=== PATIENT | female | born 1950 | race Caucasian/White ===

== ENCOUNTER → 2017-06-15 | Outpatient (CLI) | payer OTHER ==
[~2017-06-15] MED LIST: NS 100 ML IV 100 ML IV ONE
[2017-06-15 09:53] LABS: CREATININE 1.14 mg/dL (0.55-1.02)
--- NOTE | 2017-06-15 12:42 | CT ---
CT OF THE ABDOMEN AND PELVIS WITHOUT AND WITH CONTRAST HISTORY: Recurrent UTI Comparison: 10/31/2013 Technique: Multiple axial images of the abdomen and pelvis were obtained from the lung bases to the pubic symphy sis before and following the administration of IV contrast. Dose reduction techniques including Aut omated Exposure Control (AEC) and adjustment of mA and kV were utlized. Findings: The heart is normal in size. There is no pericardial effusion. Lung bases are clear without focal con solidation, pleural effusion or pneumothorax. Abdomen without: No gallstones, renal stones or proximal ureteral stones. Abdomen with: Liver and spleen are normal in size, enhancement characteristics and contour. Multiple hypo attenuating liver lesions are unchanged from prior. The portal vein is patent. No ductal dilitat ion. Gallbladder is present. No gallbladder wall thickening. Fatty atrophy of the pancreas. Adrenal g lands are normal. Kidneys enhance symmetrically without hydronephrosis. No bowel obstruction or inflammation. No abnormal appearing mesenteric or retroperitoneal lymph node s. No free fluid or fluid collections. Pelvis without: No distal ureteral stones or bladder stones. Pelvis with: The bladder is normal in appearance. Uterus is absent. No free fluid or abnormal pelvic lymph nodes. No aggressive osseous lesions. IMPRESSION: 1. No source of patient's recurrent UTIs be identified on this examination. 2. Multiple, stable hepatic cysts. Reported By:
== END ==
LOC: RAD 09:17
PROVIDERS: ATTEND Obstetrics & Gynecology Obstetrics
DX: R31.9 Hematuria, unspecified (principal)
CPT/HCPCS: 36415; 74178; 82565; 84520; A4222

== ENCOUNTER 2024-05-09 20:49 | Inpatient (IN) ==
[2024-05-09 22:06] LABS: BASOPHILS # (AUTO) 0.1 X10^3/uL (0.0-0.1); NEUTROPHILS # (AUTO) 8.2 x10^3/uL (2.2-4.8); RED CELL DISTRIBUTION WIDTH 18.4 % (11.6-16.5)
[2024-05-09 22:15] LABS: ALBUMIN 2.3 g/dL (3.4-5.0); CALCIUM 8.5 mg/dL (8.5-10.1); CARBON DIOXIDE 21.6 mmol/L (21-32); COR CA(FOR HYPOALB) 9.9 mg/dL (8.5-10.1); CREATININE 1.31 mg/dL (0.55-1.02); POTASSIUM 4.3 mmol/L (3.5-5.1); TOTAL PROTEIN 4.6 g/dL (6.4-8.2)
[2024-05-09 22:18] LABS: BASOPHILS % (AUTO) 0.7 % (0.2-1.0); EOSINOPHILS % (AUTO) 0.2 % (0.9-2.9); LYMPHOCYTES % (AUTO) 18.8 % (21.0-51.0); MEAN CORPUSCULAR HEMOGLOBIN 31.4 pg (27.0-34.0); MEAN CORPUSCULAR HGB CONC 33.6 g/dL (33.0-35.0); MEAN CORPUSCULAR VOLUME 93.6 fL (80.0-100.0); MEAN PLATELET VOLUME 8.9 fL (7.4-11.0); MONOCYTES # (AUTO) 0.5 x10^3/uL (0.3-0.8); MONOCYTES % (AUTO) 4.6 % (0.0-13.0); NEUTROPHILS % (AUTO) 75.7 % (42.0-75.0); PLATELET COUNT 456 X10^3/uL (150.0-450.0); RED BLOOD COUNT 1.77 X10^6/uL (3.5-5.4); WHITE BLOOD COUNT 10.8 X10^3/uL (3.6-10.0)
[2024-05-09] MEDS: ZOFRAN INJ 4 MG VIAL IM ONE (22:27)
[2024-05-09 22:37] LABS: HEMOGLOBIN 5.5 g/dL (12.0-16.0)
[2024-05-09 22:38] LABS: HEMATOCRIT 16.5 % (36.0-47.0)
--- NOTE | 2024-05-09 22:55 | ED.ABDFE ---
HPI Time Seen Time Seen by Provider: 05/09/24 22:36 PCP Primary Care Physician: rangel HPI Comment HPI Comment: History as below. Complaint Doctors Chief Complaint Comments: Patient is 73yr old female in ER with abdominal pain, nausea, vomiting and GI bleeding. Patient said symptoms on and off and got worse past few days. Patient is weak and dizzy. She denies diarrhea or dysuria. Chief Complaint:: pt c/o nausea for months and months bleeding from rectum for months. pt states" I'm just so sick I can't do anything I'm just so sick" COVID-19 Coronavirus risk:travel/contact w/high risk person: No Has patient experienced Coronavirus symptoms: No Source History Provided: Patient Mode of arrival Mode of Arrival: Wheelchair Timing Onset of Chief Complaint: 02/08/24 PMH PMH Past Medical History: Yes Past Medical History: Anemia, Diabetes and Hypertension Past Surgical History: Yes Surgical History: Hysterectomy, Ortho Surgery and Tonsillectomy Family History History of Family Medical Conditions: No Family Medical History: Diabetes Mellitus, Cancer and Hypertension Social History Does patient currently use any type of tobacco product: No Have you used tobacco products in the last 12 months: No Type of Tobacco Use: None Does any household member use tobacco: No Alcohol Use: None Do you use any recreational Drugs:: No Lives With: Family Lives Where: Home Travel Risk Coronavirus risk:travel/contact w/high risk person: No Has patient experienced Coronavirus symptoms: No Infectious screening In the last 2 months have you had wt loss of >10#?: NO Have you had fever, night sweats or hemotysis?: No Have you traveled outside the country in the last 6 months?: No Isolation: Standard ROS Review of Systems Constitutional: Weakness and Fatigue; negative Fever Eyes: No Symptoms Reported ENTM: No Symptoms Reported; negative Nose Discharge, Nose Congestion or Throat Pain Respiratoy: Short of Breath; negative Moist Cough or Wheezing Cardiovascular: No Symptoms Reported; negative Chest Pain or Edema Gastrointestinal/Abdominal: Abdominal Pain, Nausea and Vomiting Genitourinary: No Symptoms Reported; negative Dysuria Neurological: negative Headache or Dizziness Musculoskeletal: No Symptoms Reported; negative Muscle Pain Integumentary: Dryness; negative Rash Hematologic/Lymphatic: No Symptoms Reported Endocrine: Increased Thirst; negative Increased Urine Psychiatric: Anxiety All Other Systems: Reviewed and Negative PE Vital Signs Vitals: Vital Signs Pulse Rate 115 Pulse Rate 115 Pulse Rate 116 Pulse Rate 116 Respiratory Rate 20 Respiratory Rate 18 Respiratory Rate 23 Blood Pressure 176/80 Blood Pressure 153/67 Blood Pressure 158/69 O2 Sat by Pulse Oximetry 99 O2 Sat by Pulse Oximetry 98 O2 Sat by Pulse Oximetry 98 O2 Sat by Pulse Oximetry 99 General Limitations: No Limitations General Appearance: Alert and In No Apparent Distress Head Head Exam: Normal Inspection Eyes Eye exam: Normal Appearance; negative Scleral Icterus or Conjunctival Injection ENT ENT Exam: Normal Exam, Normal Oropharynx, Normal External Ear Exam and TM's Normal Bilaterally Neck Neck Exam: Normal Inspection and Tenderness Chest Chest Inspection: Normal Inspection and Symmetric Chest Wall Rise; negative Tenderness Respiratory Respiratory Exam: Normal Lung Sounds Bilat; negative Accessory Muscle Use, Chest Wall Tenderness or Respiratory Distress Respiratory Exam: Bilateral: Rhonchi Cardiovascular Cardiovascular Exam: Tachycardia; negative Systolic Murmur or Diastolic Murmur Abdominal Exam Abdominal Exam: Normal Bowel Sounds, Soft and Tenderness Abdominal Tenderness: Diffuse and Moderate Rectal Rectal Exam: Heme (+) Stool, Hemorrhoids and Other (red blood in diaper. external hemorrhoid noted. No bleeding noted.) Back Back Exam: Normal Inspection; negative (R) CVA Tenderness or (L) CVA Tenderness Extremeties Extremities Exam: Normal Capillary Refill and Edema (trace edema.) External Exam: Female: Deferred : Speculum Exam (Female): Deferred : Bimanual Exam (female): Deferred Neurologic Neurological Exam: Alert and Oriented X3; negative Motor Sensory Deficit Psychiatric Psychiatric Exam: Normal Affect and Anxious Skin Skin Exam: Warm; negative Rash MDM Differential Diagnosis Differential Diagnosis- Considerations may include:: Bowel Obstruction, Cholcystitis, Cholelethiasis, Constipation, Diverticular disease, Gastritus/PUD, Inflammatory BD, Pancreatitis, Urinary tract infection, Urolithiasis and Other (comments) (GI BLEEDING.) COURSE Treatment Treatment: See orders done while patient was in ER. Labs and CT discussed. Patients have red blood in diaper. one of the vomitus had dark stool. Patient started on Protonix drip. Hemoglobin is 5.5 blood requested, 2units is pending. Blood sent [employer] for typing. Consultation Consultation Comments: Discussed patient with Dr. Dumont. He will admit gato ent. Education/Counseling Education/Counseling: Patient and Family Educated On: Diagnosis ROR Labs Reviewed Laboratory Results Reviewed?: Yes 05/10/24 05:55 05/10/24 05:55 Laboratory: WBC 10.8 X10^3/uL (3.6-10.0) H 05/09/24 21:55 RBC 1.77 X10^6/uL (3.5-5.4) L 05/09/24 21:55 Hgb 5.5 g/dL (12.0-16.0) L* 05/09/24 21:55 Hct 16.5 % (36.0-47.0) L* 05/09/24 21:55 MCV 93.6 fL (80.0-100.0) 05/09/24 21:55 MCH 31.4 pg (27.0-34.0) 05/09/24 21:55 MCHC 33.6 g/dL (33.0-35.0) 05/09/24 21:55 RDW 18.4 % (11.6-16.5) H 05/09/24 21:55 Plt Count 456 X10^3/uL (150.0-450.0) H 05/09/24 21:55 MPV 8.9 fL (7.4-11.0) 05/09/24 21:55 Neut % (Auto) 75.7 % (42.0-75.0) H 05/09/24 21:55 Lymph % (Auto) 18.8 % (21.0-51.0) L 05/09/24 21:55 [place] % (Auto) 4.6 % (0.0-13.0) 05/09/24 21:55 Eos % (Auto) 0.2 % (0.9-2.9) L 05/09/24 21:55 Baso % (Auto) 0.7 % (0.2-1.0) 05/09/24 21:55 Neut # (Auto) 8.2 x10^3/uL (2.2-4.8) H 05/09/24 21:55 Lymph # (Auto) 2.0 X10^3/uL (1.3-2.9) 05/09/24 21:55 [place] # (Auto) 0.5 x10^3/uL (0.3-0.8) 05/09/24 21:55 Eos # (Auto) 0.0 x10^3/uL (0.0-0.2) 05/09/24 21:55 Baso # (Auto) 0.1 X10^3/uL (0.0-0.1) 05/09/24 21:55 Absolute Nucleated RBC 0.1 /100WBC 05/09/24 21:55 Sodium 140 mmol/L (136-145) 05/09/24 21:55 Corrected Sodium 142 mmol/L (136-145) 05/09/24 21:55 Potassium 4.3 mmol/L (3.5-5.1) 05/09/24 21:55 Chloride 104 mmol/L (98-107) 05/09/24 21:55 Carbon Dioxide 21.6 mmol/L (21-32) 05/09/24 21:55 BUN 30 mg/dL (7-18) H 05/09/24 21:55 Creatinine 1.31 mg/dL (0.55-1.02) H 05/09/24 21:55 Est GFR (MDRD) Af Amer 51 (>60) L 05/09/24 21:55 Est GFR (MDRD) Non-Af 42 (>60) L 05/09/24 21:55 Glucose 169 mg/dL (65-99) H 05/09/24 21:55 Calcium 8.5 mg/dL (8.5-10.1) 05/09/24 21:55 Corrected Calcium 9.9 mg/dL (8.5-10.1) 05/09/24 21:55 Total Bilirubin 0.20 mg/dL (0.2-1.0) 05/09/24 21:55 AST 8 Units/L (15-37) L 05/09/24 21:55 ALT 9 Units/L (12-78) L 05/09/24 21:55 Alkaline Phosphatase 81 Units/L (46-116) 05/09/24 21:55 B-Natriuretic Peptide 40.3 pg/mL (0-79) 05/09/24 23:52 Total Protein 4.6 g/dL (6.4-8.2) L 05/09/24 21:55 Albumin 2.3 g/dL (3.4-5.0) L 05/09/24 21:55 Globulin 2.3 g/dL (2.5-4.5) L 05/09/24 21:55 Albumin/Globulin Ratio 1.0 Ratio (1.1-2.1) L 05/09/24 21:55 Amylase 21 Units/L (25-115) L 05/09/24 21:55 Lipase 22 Units/L (16-77) 05/09/24 21:55 Stl Occult Blood (IFOB) Positive (NEGATIVE) A 05/09/24 23:57 Crossmatch See Detail 05/09/24 23:42 XRAY XRAY Interpreted by: Radiologist (Report noted.) EKG Rate: 114 [place]: Normal Rhythm: ST Block: AVB and RBBB Hypertrophy: None ST: Nonsp Opioid Opioid Risk Tool Age ([place] box if 16-45): No History of Preadolescent Sexual Abuse: No Total: 0 Total Score Risk Category: Low Risk Copyright: Blu GRIGGS predicting aberrant behaviors Discharge Plan Diagnosis Discharge Problem: Acute GI bleeding, Cholecystitis, Generalized weakness Anemia Qualifiers: Anemia type: unspecified type Qualified Code(s): D64.9 - Anemia, unspecified Cholelithiasis Qualifiers: Cholelithiasis location: gallbladder Cholecystitis presence: with cholecystitis Cholecystitis acuity: acute and chronic Biliary obstruction: without biliary obstruction Qualified Code(s): K80.12 - Calculus of gallbladder with acute and chronic cholecystitis without obstruction Discharge Plan Patient Disposition: 09 ADMITTED INPATIENT Condition: Stable
[2024-05-09] MEDS: NS 1,000 ML IV 1,000 ML IV SCH (23:01)
[2024-05-09] MEDS: ZOFRAN INJ 4 MG VIAL IVP ONE (23:06)
[2024-05-09] MEDS: PROTONIX INJ 40 MG VIAL 80 MG in NS 100 ML IV 80 ML IV SCH (23:47)
--- NOTE | 2024-05-10 00:47 | CT ---
PROCEDURE: CT Abdomen and Pelvis without IV Contrast. HISTORY: pt c/o nausea for months and months bleeding from rectum for months. pt states" I'm just so sick I can't do anything I'm just so sick"; HTN, DM, ANEMIA SX: HYST, ORTHO, TONSILS . TECHNIQUE: Axial images were performed through the abdomen and pelvis without the administration of I V contrast with multiplanar reformations . Oral contrast was notadministered . Dose reduction techniq ues including Automated Exposure Control (AEC) and adjustment of mA and kV were utilized .. COMPARISON: 02/26/2024. TECHNICAL QUALITY: Satisfactory. FINDINGS: Clear lung bases. Several small hepatic cysts. Bilateral small adrenal nodules are unchanged probably related to adeno mas. Spleen and pancreas show no abnormality. Kidneys show no stones or obstruction. Increased attenuation gallbladder lumen could represent large stones or sludge with thickened wall an d pericholecystic stranding. Some air in the gallbladder versus cholesterol stones with central vacu um phenomena. Normal biliary tree. No ascites or pneumoperitoneum. Mild atherosclerosis aorta. No lymphadenopathy. No bowel obstruction or inflammation and normal appendix. Pelvis shows no masses or free fluid with previous hysterectomy. Normal urinary bladder. No acute bony abnormality. IMPRESSION: 1. Cholelithiasis or sludge with acute cholecystitis. 2. Unchanged adrenal nodules. THIS IS AN ELECTRONICALLY VERIFIED FINAL REPORT 05/10/2024 12:44 AM - Electronically signed by Marcel Wyatt MD
[2024-05-10] MEDS: PHENERGAN INJ 25 MG IM ONE ×2 (03:29→06:36)
[2024-05-10 03:30] VITALS: BMI 42.0
[2024-05-10] MEDS ORDERED: ZOFRAN INJ 4 MG VIAL IVP PRN (04:00)
--- NOTE | 2024-05-10 04:11 | EKG ---
Test Reason : ANEMIA Blood Pressure : */* mmHG Vent. Rate : 114 BPM Atrial Rate : 114 BPM P-R Int : 126 ms QRS Dur : 126 ms QT Int : 370 ms P-R-T Axes : 64 -58 41 degrees QTc Int : 509 ms Sinus tachycardia Right bundle branch block Left anterior fascicular block Bifascicular block Abnormal ECG No previous ECGs available Confirmed by Danny Henson MD ([id number]) on 05/10/2024 7:18:29 AM Referred By: Confirmed By: Danny Henson MD
[2024-05-10 04:47] LABS: BILIRUBIN,URINE NEGATIVE (NEGATIVE); BLOOD/HEMOGLOBIN,URINE NEGATIVE (NEGATIVE); GLUCOSE, URINE NEGATIVE (NEGATIVE); KETONES,URINE 1+ (NEGATIVE); LEUKOCYTE ESTERASE ,URINE NEGATIVE (NEGATIVE); NITRITES,URINE NEGATIVE (NEGATIVE); PROTEIN,URINE 2+ (NEGATIVE); UROBILINOGEN,URINE NORMAL (NORMAL)
[2024-05-10 04:50] LABS: APPEARANCE,URINE CLEAR (CLEAR); BACTERIA,URINE NEGATIVE /HPF (NEGATIVE); COLOR,URINE PALE YELLOW (YELLOW); HYALINE CASTS, URINE FEW /LPF (NEGATIVE); RBC,URINE 0-2 /HPF (0-3); SQUAMOUS EPITHELIAL CELL,UR FEW /HPF (NEGATIVE)
[2024-05-10 06:12] LABS: MEAN CORPUSCULAR VOLUME 93.8 fL (80.0-100.0); MONOCYTES # (AUTO) 0.3 x10^3/uL (0.3-0.8)
[2024-05-10 06:18] LABS: BASOPHILS % (AUTO) 0.2 % (0.2-1.0); LYMPHOCYTES % (AUTO) 27.9 % (21.0-51.0); MEAN CORPUSCULAR HEMOGLOBIN 31.3 pg (27.0-34.0); MEAN CORPUSCULAR HGB CONC 33.4 g/dL (33.0-35.0); MEAN PLATELET VOLUME 8.3 fL (7.4-11.0); MONOCYTES % (AUTO) 3.3 % (0.0-13.0); NEUTROPHILS # (AUTO) 7.3 x10^3/uL (2.2-4.8); NEUTROPHILS % (AUTO) 68.6 % (42.0-75.0); PLATELET COUNT 427 X10^3/uL (150.0-450.0); RED CELL DISTRIBUTION WIDTH 18.5 % (11.6-16.5); WHITE BLOOD COUNT 10.6 X10^3/uL (3.6-10.0)
[2024-05-10 06:24] LABS: ALBUMIN 2.4 g/dL (3.4-5.0); CALCIUM 8.2 mg/dL (8.5-10.1); CARBON DIOXIDE 23.6 mmol/L (21-32); COR CA(FOR HYPOALB) 9.5 mg/dL (8.5-10.1); CREATININE 1.2 mg/dL (0.55-1.02); MAGNESIUM 1.7 mg/dL (2.0-2.9); POTASSIUM 4.1 mmol/L (3.5-5.1); TOTAL PROTEIN 4.6 g/dL (6.4-8.2)
[2024-05-10] MEDS: ZOFRAN INJ 4 MG VIAL ONE (06:35)
[2024-05-10] MEDS: PROTONIX INJ 40 MG VIAL 80 MG in NS 100 ML IV 80 ML IV SCH (06:36)
[2024-05-10 06:39] LABS: INR 1.56 (0.8-1.3)
[2024-05-10] MEDS: CYTOTEC PO SCH (10:40)
[2024-05-10] MEDS: NS 500 ML IV 500 ML IV ONE (11:29)
[2024-05-10] MEDS: VISTARIL PO PRN (11:40)
[2024-05-10] MEDS ORDERED: CONSULT PHARMACY - POTASSIUM & MAGNESIUM XX SCH (12:00)
[2024-05-10] MEDS: NS 1,000 ML IV 1,000 ML with MAGNESIUM SULFATE 50% INJ VIAL 1 G IV SCH (14:35)
[2024-05-10 19:16] LABS: HEMATOCRIT 22.5 % (36.0-47.0); HEMOGLOBIN 7.4 g/dL (12.0-16.0)
[2024-05-10] MEDS: RESTORIL CAP 15 MG PO PRN (20:11)
[2024-05-10 23:15] LABS: HEMATOCRIT 19.6 % (36.0-47.0); HEMOGLOBIN 6.7 g/dL (12.0-16.0)
[2024-05-11] MEDS ORDERED: NS 500 ML IV 500 ML IV ONE ×3 (00:40→16:41)
[2024-05-11 06:30] LABS: BASOPHILS # (AUTO) 0.3 X10^3/uL (0.0-0.1); BASOPHILS % (AUTO) 3.5 % (0.2-1.0); EOSINOPHILS % (AUTO) 0.6 % (0.9-2.9); HEMATOCRIT 21.3 % (36.0-47.0); HEMOGLOBIN 7.2 g/dL (12.0-16.0); LYMPHOCYTES % (AUTO) 38.7 % (21.0-51.0); MEAN CORPUSCULAR HEMOGLOBIN 30.2 pg (27.0-34.0); MEAN CORPUSCULAR VOLUME 88.8 fL (80.0-100.0); MEAN PLATELET VOLUME 8.5 fL (7.4-11.0); MONOCYTES # (AUTO) 0.5 x10^3/uL (0.3-0.8); MONOCYTES % (AUTO) 6.9 % (0.0-13.0); NEUTROPHILS # (AUTO) 3.9 x10^3/uL (2.2-4.8); NEUTROPHILS % (AUTO) 50.3 % (42.0-75.0); PLATELET COUNT 248 X10^3/uL (150.0-450.0); RED CELL DISTRIBUTION WIDTH 18.4 % (11.6-16.5); WHITE BLOOD COUNT 7.8 X10^3/uL (3.6-10.0)
[2024-05-11 06:52] LABS: ALANINE AMINOTRANSFERASE 11 Units/L (12-78); ALBUMIN 2.3 g/dL (3.4-5.0); ALKALINE PHOSPHATASE 64 Units/L (46-116); ASPARTATE AMINO TRANSFERASE 11 Units/L (15-37); BLOOD UREA NITROGEN 19 mg/dL (7-18); CALCIUM 7.7 mg/dL (8.5-10.1); CARBON DIOXIDE 23.4 mmol/L (21-32); CHLORIDE 106 mmol/L (98-107); COR CA(FOR HYPOALB) 9.1 mg/dL (8.5-10.1); CREATININE 0.95 mg/dL (0.55-1.02); GLUCOSE 109 mg/dL (65-99); POTASSIUM 3.2 mmol/L (3.5-5.1); SODIUM 140 mmol/L (136-145); TOTAL PROTEIN 4.5 g/dL (6.4-8.2); eGFR NON BLACK RACES > 60 (>60)
[2024-05-11] MEDS ORDERED: CONSULT PHARMACY - POTASSIUM & MAGNESIUM XX SCH (08:00)
--- NOTE | 2024-05-11 08:26 | DR.PROGNOT ---
HOSPITAL PROGRESS NOTE Progress Note for Day of: Progress Note Date: 05/11/24 Chief Complaint Chief Complaint: having bloody stool and less abdominal pain . Hgb 7.8 , WBC 7.8 .. platelet 248 .BUN19. afebrile . soft , flat abdomen with mild diffuse tenderness . Past Medical Family Social History Past Med/Fam/Surg Hx: No changes since H&P Allergies: Allergies No Known Allergies Allergy (Verified 05/09/24 23:58) Vital Signs Vital Signs: Vital Signs Temperature 98.2 F Temperature 99.0 F Pulse Rate 98 Pulse Rate 97 Pulse Rate 91 Pulse Rate 90 Pulse Rate 91 Pulse Rate 91 Pulse Rate 88 Pulse Rate 91 Pulse Rate 93 Pulse Rate 92 Pulse Rate 90 Pulse Rate 90 Pulse Rate 92 Pulse Rate 92 Pulse Rate 91 Pulse Rate 94 Pulse Rate 94 Pulse Rate 91 Pulse Rate 92 Pulse Rate 92 Pulse Rate 90 Pulse Rate 89 Pulse Rate 97 Pulse Rate 97 Pulse Rate 91 Pulse Rate 93 Pulse Rate 92 Pulse Rate 97 Pulse Rate 94 Pulse Rate 93 Pulse Rate 94 Pulse Rate 93 Pulse Rate 95 Pulse Rate 93 Pulse Rate 93 Pulse Rate 100 Pulse Rate 95 Respiratory Rate 18 Respiratory Rate 29 Respiratory Rate 22 Respiratory Rate 19 Respiratory Rate 18 Respiratory Rate 19 Respiratory Rate 18 Respiratory Rate 17 Respiratory Rate 20 Respiratory Rate 19 Respiratory Rate 20 Respiratory Rate 20 Respiratory Rate 25 Respiratory Rate 19 Respiratory Rate 20 Respiratory Rate 20 Respiratory Rate 19 Respiratory Rate 15 Respiratory Rate 18 Respiratory Rate 19 Respiratory Rate 26 Respiratory Rate 17 Respiratory Rate 20 Respiratory Rate 25 Respiratory Rate 21 Respiratory Rate 20 Respiratory Rate 21 Respiratory Rate 21 Respiratory Rate 19 Respiratory Rate 22 Respiratory Rate 23 Respiratory Rate 22 Respiratory Rate 21 Respiratory Rate 21 Respiratory Rate 19 Respiratory Rate 20 Respiratory Rate 20 Respiratory Rate 5 Blood Pressure 157/72 Blood Pressure 157/69 Blood Pressure 154/66 Blood Pressure 216/87 Blood Pressure 187/76 Blood Pressure 163/69 Blood Pressure 151/65 Blood Pressure 148/65 Blood Pressure 133/62 Blood Pressure 121/58 Blood Pressure 118/54 O2 Sat by Pulse Oximetry 98 O2 Sat by Pulse Oximetry 100 O2 Sat by Pulse Oximetry 100 O2 Sat by Pulse Oximetry 100 O2 Sat by Pulse Oximetry 100 O2 Sat by Pulse Oximetry 100 O2 Sat by Pulse Oximetry 100 O2 Sat by Pulse Oximetry 100 O2 Sat by Pulse Oximetry 100 O2 Sat by Pulse Oximetry 100 O2 Sat by Pulse Oximetry 100 O2 Sat by Pulse Oximetry 100 O2 Sat by Pulse Oximetry 100 O2 Sat by Pulse Oximetry 100 O2 Sat by Pulse Oximetry 100 O2 Sat by Pulse Oximetry 100 O2 Sat by Pulse Oximetry 100 O2 Sat by Pulse Oximetry 100 O2 Sat by Pulse Oximetry 100 O2 Sat by Pulse Oximetry 100 O2 Sat by Pulse Oximetry 100 O2 Sat by Pulse Oximetry 100 O2 Sat by Pulse Oximetry 98 O2 Sat by Pulse Oximetry 97 O2 Sat by Pulse Oximetry 96 O2 Sat by Pulse Oximetry 97 O2 Sat by Pulse Oximetry 99 O2 Sat by Pulse Oximetry 94 O2 Sat by Pulse Oximetry 97 O2 Sat by Pulse Oximetry 95 O2 Sat by Pulse Oximetry 97 O2 Sat by Pulse Oximetry 96 O2 Sat by Pulse Oximetry 96 O2 Sat by Pulse Oximetry 96 O2 Sat by Pulse Oximetry 98 O2 Sat by Pulse Oximetry 97 Physical Exam Oriented: Normal Eyes: Normal Ear: Normal Nose: Normal Throat: Normal Respiratory: Normal Cardiovascular: Normal GI:Auscultation: Decreased GI: Tenderness: Diffuse and Periumbilical Speech Pattern: Clear and Appropriate Laboratory and Diagnostics 05/11/24 06:15 05/11/24 06:15 Labs: Laboratory WBC 7.8 X10^3/uL (3.6-10.0) 05/11/24 06:15 RBC 2.40 X10^6/uL (3.5-5.4) L 05/11/24 06:15 Hgb 7.2 g/dL (12.0-16.0) L 05/11/24 06:15 Hct 21.3 % (36.0-47.0) L 05/11/24 06:15 MCV 88.8 fL (80.0-100.0) 05/11/24 06:15 MCH 30.2 pg (27.0-34.0) 05/11/24 06:15 MCHC 34.0 g/dL (33.0-35.0) 05/11/24 06:15 RDW 18.4 % (11.6-16.5) H 05/11/24 06:15 Plt Count 248 X10^3/uL (150.0-450.0) 05/11/24 06:15 MPV 8.5 fL (7.4-11.0) 05/11/24 06:15 Neut % (Auto) 50.3 % (42.0-75.0) 05/11/24 06:15 Lymph % (Auto) 38.7 % (21.0-51.0) 05/11/24 06:15 [place] % (Auto) 6.9 % (0.0-13.0) 05/11/24 06:15 Eos % (Auto) 0.6 % (0.9-2.9) L 05/11/24 06:15 Baso % (Auto) 3.5 % (0.2-1.0) H 05/11/24 06:15 Neut # (Auto) 3.9 x10^3/uL (2.2-4.8) 05/11/24 06:15 Lymph # (Auto) 3.0 X10^3/uL (1.3-2.9) H 05/11/24 06:15 [place] # (Auto) 0.5 x10^3/uL (0.3-0.8) 05/11/24 06:15 Eos # (Auto) 0.0 x10^3/uL (0.0-0.2) 05/11/24 06:15 Baso # (Auto) 0.3 X10^3/uL (0.0-0.1) H 05/11/24 06:15 Absolute Nucleated RBC 0.1 /100WBC 05/11/24 06:15 PT 18.2 SECONDS (11.8-14.3) 05/10/24 05:55 INR Target Range - 05/10/24 05:55 INR 1.56 (0.8-1.3) H 05/10/24 05:55 APTT 29.6 SECONDS (22.9-36.5) 05/10/24 05:55 PTT Comment - 05/10/24 05:55 Sodium 140 mmol/L (136-145) 05/11/24 06:15 Corrected Sodium TNP 05/11/24 06:15 Potassium 3.2 mmol/L (3.5-5.1) L 05/11/24 06:15 Chloride 106 mmol/L (98-107) 05/11/24 06:15 Carbon Dioxide 23.4 mmol/L (21-32) 05/11/24 06:15 BUN 19 mg/dL (7-18) H 05/11/24 06:15 Creatinine 0.95 mg/dL (0.55-1.02) 05/11/24 06:15 Est GFR (MDRD) Af Amer > 60 (>60) 05/11/24 06:15 Est GFR (MDRD) Non-Af > 60 (>60) 05/11/24 06:15 Glucose 109 mg/dL (65-99) H 05/11/24 06:15 Calcium 7.7 mg/dL (8.5-10.1) L 05/11/24 06:15 Corrected Calcium 9.1 mg/dL (8.5-10.1) 05/11/24 06:15 Magnesium 2.0 mg/dL (2.0-2.9) 05/11/24 06:15 Total Bilirubin 0.40 mg/dL (0.2-1.0) 05/11/24 06:15 AST 11 Units/L (15-37) L 05/11/24 06:15 ALT 11 Units/L (12-78) L 05/11/24 06:15 Alkaline Phosphatase 64 Units/L (46-116) 05/11/24 06:15 B-Natriuretic Peptide 40.3 pg/mL (0-79) 05/09/24 23:52 Total Protein 4.5 g/dL (6.4-8.2) L 05/11/24 06:15 Albumin 2.3 g/dL (3.4-5.0) L 05/11/24 06:15 Globulin 2.2 g/dL (2.5-4.5) L 05/11/24 06:15 Albumin/Globulin Ratio 1.0 Ratio (1.1-2.1) L 05/11/24 06:15 Amylase 21 Units/L (25-115) L 05/09/24 21:55 Lipase 22 Units/L (16-77) 05/09/24 21:55 Specimen Type Catherized urine 05/10/24 04:39 Urine Color Pale yellow (YELLOW) 05/10/24 04:39 Urine Appearance Clear (CLEAR) 05/10/24 04:39 Urine pH 5.0 (5.0 - 8.0) 05/10/24 04:39 Ur Specific [place] 1.015 (1.000-1.030) 05/10/24 04:39 Urine Protein 2+ (NEGATIVE) 05/10/24 04:39 Urine Glucose (UA) Negative (NEGATIVE) 05/10/24 04:39 Urine Ketones 1+ (NEGATIVE) 05/10/24 04:39 Urine Blood Negative (NEGATIVE) 05/10/24 04:39 Urine Nitrite Negative (NEGATIVE) 05/10/24 04:39 Urine Bilirubin Negative (NEGATIVE) 05/10/24 04:39 Urine Urobilinogen Normal (NORMAL) 05/10/24 04:39 Ur Leukocyte Esterase Negative (NEGATIVE) 05/10/24 04:39 Urine RBC 0-2 /HPF (0-3) 05/10/24 04:39 Urine WBC 0-2 /HPF (0-5) 05/10/24 04:39 Ur Squamous Epith Cells Few /HPF (NEGATIVE) 05/10/24 04:39 Urine Bacteria Negative /HPF (NEGATIVE) 05/10/24 04:39 Hyaline Casts Few /LPF (NEGATIVE) 05/10/24 04:39 Ur Culture Indicated? No/not indicated 05/10/24 04:39 Stl Occult Blood (IFOB) Positive (NEGATIVE) A 05/09/24 23:57 Blood Type B POSITIVE 05/09/24 23:42 Antibody Screen Negative 05/09/24 23:42 Crossmatch See Detail 05/09/24 23:42 Assessment and Plan 1: severe anemia , recurrent GI bleeding . for colonoscopy next week . Problem Patient Problems: Patient Problems (Updated 05/10/24 @ 07:50 by JOHNNIE HARRELL) Acute GI bleeding (Acute) K92.2 Anemia (Acute) D64.9 Generalized weakness (Acute) R53.1 Cholecystitis (Acute) K81.9 Cholelithiasis (Acute) K80.20
[2024-05-11] MEDS: POTASSIUM CHLORIDE INJ 40 MEQ VIAL 40 MEQ in NS 1/2 500 ML IV 500 ML IV ONE (09:27)
[2024-05-11] MEDS: COREG TAB 12.5 MG PO SCH (09:28)
[2024-05-11] MEDS: NORVASC TAB 5 MG PO SCH (09:29)
[2024-05-11] MEDS: ACTOS PO SCH (09:29)
[2024-05-11] MEDS: ZYLOPRIM PO SCH (09:29)
[2024-05-11] MEDS: EFFEXOR XR 150 MG CAP 24-HR PO SCH (10:38)
[2024-05-11 12:23] LABS: RETICULOCYTE % 3.51 % (0.8-2.2)
--- NOTE | 2024-05-11 12:39 | RAD ---
EXAM:CHEST, 1 VIEWHISTORY:CENTRAL LINE PLACEMENT ; HTN, DM, ANEMIA SX: HYST, ORTHO, TONSILSCOMPARISON:No relevant prior studies were available for comparison at the time of interpretation.TECHNIQUE:CHEST, 1 VIEWFINDINGS:Chest:Lines and tubes: Right subclavian central line is seen with its tip at the right atrium.Mediastinum: Borderline cardiomegaly.Pulmonary vessels: Pulmonary vasculature is prominent.Lung mccarthy: Patchy opacities are seenPleura: No effusion. No pneumothorax.Bones and soft tissues: No acute osseous or soft tissue abnormality.IMPRESSION:1. Central line in satisfactory positionTHIS IS AN ELECTRONICALLY VERIFIED FINAL REPORT05/11/2024 12:31 PM - Electronically signed by Rodger Hirsch MD
[2024-05-11] MEDS: LEXAPRO PO SCH (12:56)
[2024-05-11] MEDS: ALPRAZOLAM ODT PO ONE (12:56)
[2024-05-11] MEDS: LEXAPRO ONE (12:58)
[2024-05-11] MEDS: NS 500 ML IV 500 ML IV PRN (16:56)
[2024-05-11] MEDS ORDERED: CHLORASEPTIC SPRAY MT PRN (17:35)
[2024-05-11] MEDS ORDERED: NS 250 ML IV 250 ML IV ONE (22:18)
[2024-05-11] MEDS: BUTT CREAM (COMPOUND) TOP PRN (22:30)
[2024-05-12 02:32] LABS: HEMATOCRIT 31.4 % (36.0-47.0)
[2024-05-12 02:33] LABS: HEMOGLOBIN 10.5 g/dL (12.0-16.0)
[2024-05-12] MEDS ORDERED: MAGNESIUM SULFATE 50% INJ VIAL ONE (04:49)
[2024-05-12 05:45] LABS: BASOPHILS # (AUTO) 0.1 X10^3/uL (0.0-0.1); EOSINOPHILS # (AUTO) 0.3 x10^3/uL (0.0-0.2); EOSINOPHILS % (AUTO) 3.6 % (0.9-2.9); HEMATOCRIT 29.4 % (36.0-47.0); LYMPHOCYTES # (AUTO) 2.5 X10^3/uL (1.3-2.9); LYMPHOCYTES % (AUTO) 34.3 % (21.0-51.0); MEAN CORPUSCULAR HEMOGLOBIN 30.6 pg (27.0-34.0); MEAN PLATELET VOLUME 9.4 fL (7.4-11.0); MONOCYTES # (AUTO) 0.4 x10^3/uL (0.3-0.8); MONOCYTES % (AUTO) 6.1 % (0.0-13.0); PLATELET COUNT 205 X10^3/uL (150.0-450.0); RED BLOOD COUNT 3.26 X10^6/uL (3.5-5.4); RED CELL DISTRIBUTION WIDTH 17.8 % (11.6-16.5); WHITE BLOOD COUNT 7.4 X10^3/uL (3.6-10.0)
[2024-05-12 05:58] LABS: ALANINE AMINOTRANSFERASE 9 Units/L (12-78); ALBUMIN 2.1 g/dL (3.4-5.0); ALKALINE PHOSPHATASE 62 Units/L (46-116); ASPARTATE AMINO TRANSFERASE 11 Units/L (15-37); BLOOD UREA NITROGEN 15 mg/dL (7-18); CALCIUM 7.4 mg/dL (8.5-10.1); CARBON DIOXIDE 23.5 mmol/L (21-32); CHLORIDE 110 mmol/L (98-107); COR CA(FOR HYPOALB) 8.9 mg/dL (8.5-10.1); CREATININE 0.78 mg/dL (0.55-1.02); GLUCOSE 101 mg/dL (65-99); POTASSIUM 3.7 mmol/L (3.5-5.1); SODIUM 141 mmol/L (136-145); eGFR NON BLACK RACES > 60 (>60)
[2024-05-12] MEDS ORDERED: CONSULT PHARMACY - POTASSIUM & MAGNESIUM XX SCH (08:00)
[2024-05-12] MEDS: CYTOTEC PO SCH (09:38)
[2024-05-12] MEDS: NORVASC TAB 5 MG PO SCH (09:38)
[2024-05-12] MEDS: COREG TAB 12.5 MG PO SCH (09:38)
[2024-05-12] MEDS: K-DUR TAB 20 MEQ PO SCH (09:39)
[2024-05-12] MEDS: LEXAPRO ONE (09:42)
--- NOTE | 2024-05-12 12:06 | DR.PROGNOT ---
HOSPITAL PROGRESS NOTE Progress Note for Day of: Progress Note Date: 05/12/24 Chief Complaint Chief Complaint: No active bleeding today, no bowel movement. Denies abdominal pain and tolerating diet. Hemoglobin now is 10 after several units of packed cells. Afebrile and stable vital signs. soft, flat abdomen with mild diffuse tenderness . Past Medical Family Social History Past Med/Fam/Surg Hx: No changes since H&P Allergies: Allergies No Known Allergies Allergy (Verified 05/09/24 23:58) Vital Signs Vital Signs: Vital Signs Temperature 97.8 F Temperature 98.5 F Pulse Rate 77 Pulse Rate 76 Pulse Rate 78 Pulse Rate 79 Pulse Rate 80 Pulse Rate 79 Pulse Rate 81 Pulse Rate 83 Pulse Rate 82 Pulse Rate 81 Pulse Rate 81 Pulse Rate 80 Pulse Rate 83 Pulse Rate 79 Pulse Rate 76 Pulse Rate 75 Pulse Rate 76 Pulse Rate 75 Pulse Rate 75 Pulse Rate 82 Pulse Rate 80 Pulse Rate 77 Pulse Rate 78 Pulse Rate 77 Pulse Rate 76 Pulse Rate 77 Pulse Rate 74 Pulse Rate 79 Pulse Rate 79 Pulse Rate 79 Pulse Rate 77 Pulse Rate 75 Respiratory Rate 21 Respiratory Rate 26 Respiratory Rate 36 Respiratory Rate 19 Respiratory Rate 19 Respiratory Rate 16 Respiratory Rate 26 Respiratory Rate 18 Respiratory Rate 22 Respiratory Rate 21 Respiratory Rate 23 Respiratory Rate 21 Respiratory Rate 16 Respiratory Rate 20 Respiratory Rate 18 Respiratory Rate 19 Respiratory Rate 21 Respiratory Rate 20 Respiratory Rate 17 Respiratory Rate 19 Respiratory Rate 18 Respiratory Rate 23 Respiratory Rate 19 Respiratory Rate 18 Respiratory Rate 21 Respiratory Rate 21 Respiratory Rate 18 Respiratory Rate 19 Respiratory Rate 17 Respiratory Rate 20 Respiratory Rate 19 Respiratory Rate 19 Blood Pressure 148/85 Blood Pressure 168/72 Blood Pressure 154/68 Blood Pressure 153/67 Blood Pressure 157/70 Blood Pressure 169/77 Blood Pressure 164/67 Blood Pressure 164/67 Blood Pressure 146/65 Blood Pressure 149/64 Blood Pressure 149/64 Blood Pressure 149/64 Blood Pressure 142/61 Blood Pressure 139/59 Blood Pressure 139/59 Blood Pressure 142/63 Blood Pressure 135/59 Blood Pressure 135/59 Blood Pressure 118/56 Blood Pressure 118/56 O2 Sat by Pulse Oximetry 100 O2 Sat by Pulse Oximetry 100 O2 Sat by Pulse Oximetry 96 O2 Sat by Pulse Oximetry 100 O2 Sat by Pulse Oximetry 100 O2 Sat by Pulse Oximetry 100 O2 Sat by Pulse Oximetry 100 O2 Sat by Pulse Oximetry 100 O2 Sat by Pulse Oximetry 100 O2 Sat by Pulse Oximetry 100 O2 Sat by Pulse Oximetry 96 O2 Sat by Pulse Oximetry 100 O2 Sat by Pulse Oximetry 98 O2 Sat by Pulse Oximetry 96 O2 Sat by Pulse Oximetry 96 O2 Sat by Pulse Oximetry 98 O2 Sat by Pulse Oximetry 99 O2 Sat by Pulse Oximetry 96 O2 Sat by Pulse Oximetry 95 O2 Sat by Pulse Oximetry 100 O2 Sat by Pulse Oximetry 99 O2 Sat by Pulse Oximetry 97 O2 Sat by Pulse Oximetry 95 O2 Sat by Pulse Oximetry 100 O2 Sat by Pulse Oximetry 94 O2 Sat by Pulse Oximetry 95 O2 Sat by Pulse Oximetry 98 O2 Sat by Pulse Oximetry 100 O2 Sat by Pulse Oximetry 99 O2 Sat by Pulse Oximetry 100 O2 Sat by Pulse Oximetry 98 O2 Sat by Pulse Oximetry 98 Physical Exam Oriented: Normal Eyes: Normal Ear: Normal Nose: Normal Throat: Normal Respiratory: Normal Cardiovascular: Normal GI:Auscultation: Decreased GI: Tenderness: Diffuse and Periumbilical Mood Description: Calm Speech Pattern: Clear and Appropriate Laboratory and Diagnostics 05/12/24 04:30 05/12/24 04:30 Labs: Laboratory WBC 7.4 X10^3/uL (3.6-10.0) 05/12/24 04:30 RBC 3.26 X10^6/uL (3.5-5.4) L 05/12/24 04:30 Hgb 10.0 g/dL (12.0-16.0) L 05/12/24 04:30 Hct 29.4 % (36.0-47.0) L 05/12/24 04:30 MCV 90.0 fL (80.0-100.0) 05/12/24 04:30 MCH 30.6 pg (27.0-34.0) 05/12/24 04:30 MCHC 34.0 g/dL (33.0-35.0) 05/12/24 04:30 RDW 17.8 % (11.6-16.5) H 05/12/24 04:30 Plt Count 205 X10^3/uL (150.0-450.0) 05/12/24 04:30 MPV 9.4 fL (7.4-11.0) 05/12/24 04:30 Neut % (Auto) 54.0 % (42.0-75.0) 05/12/24 04:30 Lymph % (Auto) 34.3 % (21.0-51.0) 05/12/24 04:30 [place] % (Auto) 6.1 % (0.0-13.0) 05/12/24 04:30 Eos % (Auto) 3.6 % (0.9-2.9) H 05/12/24 04:30 Baso % (Auto) 2.0 % (0.2-1.0) H 05/12/24 04:30 Neut # (Auto) 4.0 x10^3/uL (2.2-4.8) 05/12/24 04:30 Lymph # (Auto) 2.5 X10^3/uL (1.3-2.9) 05/12/24 04:30 [place] # (Auto) 0.4 x10^3/uL (0.3-0.8) 05/12/24 04:30 Eos # (Auto) 0.3 x10^3/uL (0.0-0.2) H 05/12/24 04:30 Baso # (Auto) 0.1 X10^3/uL (0.0-0.1) 05/12/24 04:30 Absolute Nucleated RBC 0.5 /100WBC 05/12/24 04:30 Absolute Retic 0.0848 10^6/uL 05/11/24 06:15 Percent Retic 3.51 % (0.8-2.2) H 05/11/24 06:15 PT 18.2 SECONDS (11.8-14.3) 05/10/24 05:55 INR Target Range - 05/10/24 05:55 INR 1.56 (0.8-1.3) H 05/10/24 05:55 APTT 29.6 SECONDS (22.9-36.5) 05/10/24 05:55 PTT Comment - 05/10/24 05:55 Sodium 141 mmol/L (136-145) 05/12/24 04:30 Corrected Sodium TNP 05/12/24 04:30 Potassium 3.7 mmol/L (3.5-5.1) 05/12/24 04:30 Chloride 110 mmol/L (98-107) H 05/12/24 04:30 Carbon Dioxide 23.5 mmol/L (21-32) 05/12/24 04:30 BUN 15 mg/dL (7-18) 05/12/24 04:30 Creatinine 0.78 mg/dL (0.55-1.02) 05/12/24 04:30 Est GFR (MDRD) Af Amer > 60 (>60) 05/12/24 04:30 Est GFR (MDRD) Non-Af > 60 (>60) 05/12/24 04:30 Glucose 101 mg/dL (65-99) H 05/12/24 04:30 Calcium 7.4 mg/dL (8.5-10.1) L 05/12/24 04:30 Corrected Calcium 8.9 mg/dL (8.5-10.1) 05/12/24 04:30 Magnesium 2.1 mg/dL (2.0-2.9) 05/12/24 04:30 Iron 36 ug/dL (50-175) L 05/11/24 06:15 TIBC 211 ug/dL (250-450) L 05/11/24 06:15 Ferritin 49 ng/mL (8-252) 05/11/24 06:15 Total Bilirubin 0.50 mg/dL (0.2-1.0) 05/12/24 04:30 AST 11 Units/L (15-37) L 05/12/24 04:30 ALT 9 Units/L (12-78) L 05/12/24 04:30 Alkaline Phosphatase 62 Units/L (46-116) 05/12/24 04:30 B-Natriuretic Peptide 40.3 pg/mL (0-79) 05/09/24 23:52 Total Protein 4.0 g/dL (6.4-8.2) L 05/12/24 04:30 Albumin 2.1 g/dL (3.4-5.0) L 05/12/24 04:30 Globulin 1.9 g/dL (2.5-4.5) L 05/12/24 04:30 Albumin/Globulin Ratio 1.1 Ratio (1.1-2.1) 05/12/24 04:30 Amylase 21 Units/L (25-115) L 05/09/24 21:55 Lipase 22 Units/L (16-77) 05/09/24 21:55 Vitamin B12 155 pg/mL (193-986) L 05/11/24 06:15 Folate 1.9 ng/mL (>8.6) L 05/11/24 06:15 Specimen Type Catherized urine 05/10/24 04:39 Urine Color Pale yellow (YELLOW) 05/10/24 04:39 Urine Appearance Clear (CLEAR) 05/10/24 04:39 Urine pH 5.0 (5.0 - 8.0) 05/10/24 04:39 Ur Specific [place] 1.015 (1.000-1.030) 05/10/24 04:39 Urine Protein 2+ (NEGATIVE) 05/10/24 04:39 Urine Glucose (UA) Negative (NEGATIVE) 05/10/24 04:39 Urine Ketones 1+ (NEGATIVE) 05/10/24 04:39 Urine Blood Negative (NEGATIVE) 05/10/24 04:39 Urine Nitrite Negative (NEGATIVE) 05/10/24 04:39 Urine Bilirubin Negative (NEGATIVE) 05/10/24 04:39 Urine Urobilinogen Normal (NORMAL) 05/10/24 04:39 Ur Leukocyte Esterase Negative (NEGATIVE) 05/10/24 04:39 Urine RBC 0-2 /HPF (0-3) 05/10/24 04:39 Urine WBC 0-2 /HPF (0-5) 05/10/24 04:39 Ur Squamous Epith Cells Few /HPF (NEGATIVE) 05/10/24 04:39 Urine Bacteria Negative /HPF (NEGATIVE) 05/10/24 04:39 Hyaline Casts Few /LPF (NEGATIVE) 05/10/24 04:39 Ur Culture Indicated? No/not indicated 05/10/24 04:39 Stl Occult Blood (IFOB) Positive (NEGATIVE) A 05/09/24 23:57 Blood Type B POSITIVE 05/09/24 23:42 Antibody Screen Negative 05/09/24 23:42 Crossmatch See Detail 05/09/24 23:42 Assessment and Plan 1: severe anemia , corrected with transfusion recurrent GI bleeding . for EGD and colonoscopy next week . Problem Patient Problems: Patient Problems (Updated 05/10/24 @ 07:50 by JOHNNIE HARRELL) Acute GI bleeding (Acute) K92.2 Anemia (Acute) D64.9 Generalized weakness (Acute) R53.1 Cholecystitis (Acute) K81.9 Cholelithiasis (Acute) K80.20
[2024-05-12] MEDS: KLONOPIN TAB 0.5 MG PO ONE (13:49)
[2024-05-12 14:01] LABS: BILIRUBIN,URINE NEGATIVE (NEGATIVE); BLOOD/HEMOGLOBIN,URINE 4+ (NEGATIVE); GLUCOSE, URINE NEGATIVE (NEGATIVE); KETONES,URINE NEGATIVE (NEGATIVE); LEUKOCYTE ESTERASE ,URINE 3+ (NEGATIVE); NITRITES,URINE POSITIVE (NEGATIVE); PROTEIN,URINE 2+ (NEGATIVE); UROBILINOGEN,URINE NORMAL (NORMAL)
[2024-05-12 14:02] LABS: APPEARANCE,URINE HAZY (CLEAR); COLOR,URINE PALE YELLOW (YELLOW)
[2024-05-12 14:08] LABS: BACTERIA,URINE TRACE /HPF (NEGATIVE); SQUAMOUS EPITHELIAL CELL,UR RARE /HPF (NEGATIVE)
[2024-05-12] MEDS: MACROBID CAP 100 MG EXT REL PO SCH (16:14)
[2024-05-12] MEDS: PHENOBARBITAL SODIUM INJ 65 MG VIAL IVP PRN (16:18)
[2024-05-12] MEDS: ULTRAM PO PRN (21:35)
[2024-05-13 05:14] LABS: BASOPHILS # (AUTO) 0.1 X10^3/uL (0.0-0.1); BASOPHILS % (AUTO) 0.8 % (0.2-1.0); EOSINOPHILS # (AUTO) 0.3 x10^3/uL (0.0-0.2); EOSINOPHILS % (AUTO) 5.1 % (0.9-2.9); HEMATOCRIT 28.6 % (36.0-47.0); HEMOGLOBIN 9.7 g/dL (12.0-16.0); LYMPHOCYTES # (AUTO) 2.2 X10^3/uL (1.3-2.9); LYMPHOCYTES % (AUTO) 32.8 % (21.0-51.0); MEAN CORPUSCULAR HEMOGLOBIN 30.6 pg (27.0-34.0); MEAN CORPUSCULAR HGB CONC 33.9 g/dL (33.0-35.0); MEAN CORPUSCULAR VOLUME 90.1 fL (80.0-100.0); MEAN PLATELET VOLUME 9.4 fL (7.4-11.0); MONOCYTES # (AUTO) 0.6 x10^3/uL (0.3-0.8); MONOCYTES % (AUTO) 8.7 % (0.0-13.0); NEUTROPHILS # (AUTO) 3.6 x10^3/uL (2.2-4.8); NEUTROPHILS % (AUTO) 52.6 % (42.0-75.0); PLATELET COUNT 191 X10^3/uL (150.0-450.0); RED BLOOD COUNT 3.17 X10^6/uL (3.5-5.4); WHITE BLOOD COUNT 6.8 X10^3/uL (3.6-10.0)
[2024-05-13 05:26] LABS: ALANINE AMINOTRANSFERASE 7 Units/L (12-78); ALBUMIN 1.9 g/dL (3.4-5.0); ALKALINE PHOSPHATASE 63 Units/L (46-116); ASPARTATE AMINO TRANSFERASE 7 Units/L (15-37); BLOOD UREA NITROGEN 14 mg/dL (7-18); CALCIUM 7.5 mg/dL (8.5-10.1); CARBON DIOXIDE 25.7 mmol/L (21-32); CHLORIDE 109 mmol/L (98-107); COR CA(FOR HYPOALB) 9.2 mg/dL (8.5-10.1); CREATININE 0.76 mg/dL (0.55-1.02); GLUCOSE 109 mg/dL (65-99); POTASSIUM 3.9 mmol/L (3.5-5.1); SODIUM 142 mmol/L (136-145); TOTAL PROTEIN 3.8 g/dL (6.4-8.2); eGFR NON BLACK RACES > 60 (>60)
--- NOTE | 2024-05-13 08:41 | DR.PROGNOT ---
HOSPITAL PROGRESS NOTE Progress Note for Day of: Progress Note Date: 05/13/24 Chief Complaint Chief Complaint: No active bleeding today, no bowel movement. Denies abdominal pain and tolerating diet. Hemoglobin now is 9.8 . Afebrile and stable vital signs. soft, flat abdomen with mild diffuse tenderness . Past Medical Family Social History Past Med/Fam/Surg Hx: No changes since H&P Allergies: Allergies No Known Allergies Allergy (Verified 05/09/24 23:58) Vital Signs Vital Signs: Vital Signs Temperature 98.5 F Pulse Rate 68 Pulse Rate 66 Pulse Rate 66 Pulse Rate 64 Pulse Rate 63 Pulse Rate 65 Pulse Rate 67 Pulse Rate 68 Respiratory Rate 19 Respiratory Rate 18 Respiratory Rate 16 Respiratory Rate 17 Respiratory Rate 25 Respiratory Rate 20 Respiratory Rate 21 Respiratory Rate 18 Blood Pressure 130/62 Blood Pressure 128/58 Blood Pressure 106/51 Blood Pressure 130/59 Blood Pressure 107/51 Blood Pressure 116/54 Blood Pressure 117/54 Blood Pressure 114/55 O2 Sat by Pulse Oximetry 99 O2 Sat by Pulse Oximetry 97 O2 Sat by Pulse Oximetry 100 O2 Sat by Pulse Oximetry 100 O2 Sat by Pulse Oximetry 99 O2 Sat by Pulse Oximetry 99 O2 Sat by Pulse Oximetry 97 O2 Sat by Pulse Oximetry 98 Physical Exam Oriented: Normal Eyes: Normal Ear: Normal Nose: Normal Throat: Normal Respiratory: Normal Cardiovascular: Normal GI:Auscultation: Decreased GI: Tenderness: Diffuse and Periumbilical Mood Description: Calm Speech Pattern: Clear and Appropriate Laboratory and Diagnostics 05/13/24 04:27 05/13/24 04:27 Labs: 05/12/24 13:56 Urine,Catheterized Urine Culture - Preliminary Laboratory WBC 6.8 X10^3/uL (3.6-10.0) 05/13/24 04:27 RBC 3.17 X10^6/uL (3.5-5.4) L 05/13/24 04:27 Hgb 9.7 g/dL (12.0-16.0) L 05/13/24 04:27 Hct 28.6 % (36.0-47.0) L 05/13/24 04:27 MCV 90.1 fL (80.0-100.0) 05/13/24 04:27 MCH 30.6 pg (27.0-34.0) 05/13/24 04:27 MCHC 33.9 g/dL (33.0-35.0) 05/13/24 04:27 RDW 18.0 % (11.6-16.5) H 05/13/24 04:27 Plt Count 191 X10^3/uL (150.0-450.0) 05/13/24 04:27 MPV 9.4 fL (7.4-11.0) 05/13/24 04:27 Neut % (Auto) 52.6 % (42.0-75.0) 05/13/24 04:27 Lymph % (Auto) 32.8 % (21.0-51.0) 05/13/24 04:27 [place] % (Auto) 8.7 % (0.0-13.0) 05/13/24 04:27 Eos % (Auto) 5.1 % (0.9-2.9) H 05/13/24 04:27 Baso % (Auto) 0.8 % (0.2-1.0) 05/13/24 04:27 Neut # (Auto) 3.6 x10^3/uL (2.2-4.8) 05/13/24 04:27 Lymph # (Auto) 2.2 X10^3/uL (1.3-2.9) 05/13/24 04:27 [place] # (Auto) 0.6 x10^3/uL (0.3-0.8) 05/13/24 04:27 Eos # (Auto) 0.3 x10^3/uL (0.0-0.2) H 05/13/24 04:27 Baso # (Auto) 0.1 X10^3/uL (0.0-0.1) 05/13/24 04:27 Absolute Nucleated RBC 0.1 /100WBC 05/13/24 04:27 Absolute Retic 0.0848 10^6/uL 05/11/24 06:15 Percent Retic 3.51 % (0.8-2.2) H 05/11/24 06:15 PT 18.2 SECONDS (11.8-14.3) 05/10/24 05:55 INR Target Range - 05/10/24 05:55 INR 1.56 (0.8-1.3) H 05/10/24 05:55 APTT 29.6 SECONDS (22.9-36.5) 05/10/24 05:55 PTT Comment - 05/10/24 05:55 Sodium 142 mmol/L (136-145) 05/13/24 04:27 Corrected Sodium TNP 05/13/24 04:27 Potassium 3.9 mmol/L (3.5-5.1) 05/13/24 04:27 Chloride 109 mmol/L (98-107) H 05/13/24 04:27 Carbon Dioxide 25.7 mmol/L (21-32) 05/13/24 04:27 BUN 14 mg/dL (7-18) 05/13/24 04:27 Creatinine 0.76 mg/dL (0.55-1.02) 05/13/24 04:27 Est GFR (MDRD) Af Amer > 60 (>60) 05/13/24 04:27 Est GFR (MDRD) Non-Af > 60 (>60) 05/13/24 04:27 Glucose 109 mg/dL (65-99) H 05/13/24 04:27 Calcium 7.5 mg/dL (8.5-10.1) L 05/13/24 04:27 Corrected Calcium 9.2 mg/dL (8.5-10.1) 05/13/24 04:27 Magnesium 2.1 mg/dL (2.0-2.9) 05/12/24 04:30 Iron 36 ug/dL (50-175) L 05/11/24 06:15 TIBC 211 ug/dL (250-450) L 05/11/24 06:15 Ferritin 49 ng/mL (8-252) 05/11/24 06:15 Total Bilirubin 0.30 mg/dL (0.2-1.0) 05/13/24 04:27 AST 7 Units/L (15-37) L 05/13/24 04:27 ALT 7 Units/L (12-78) L 05/13/24 04:27 Alkaline Phosphatase 63 Units/L (46-116) 05/13/24 04:27 B-Natriuretic Peptide 40.3 pg/mL (0-79) 05/09/24 23:52 Total Protein 3.8 g/dL (6.4-8.2) L 05/13/24 04:27 Albumin 1.9 g/dL (3.4-5.0) L 05/13/24 04:27 Globulin 1.9 g/dL (2.5-4.5) L 05/13/24 04:27 Albumin/Globulin Ratio 1.0 Ratio (1.1-2.1) L 05/13/24 04:27 Amylase 21 Units/L (25-115) L 05/09/24 21:55 Lipase 22 Units/L (16-77) 05/09/24 21:55 Vitamin B12 155 pg/mL (193-986) L 05/11/24 06:15 Folate 1.9 ng/mL (>8.6) L 05/11/24 06:15 Specimen Type Catherized urine 05/12/24 13:56 Urine Color Pale yellow (YELLOW) 05/12/24 13:56 Urine Appearance Hazy (CLEAR) 05/12/24 13:56 Urine pH 6.0 (5.0 - 8.0) 05/12/24 13:56 Ur Specific [place] 1.020 (1.000-1.030) 05/12/24 13:56 Urine Protein 2+ (NEGATIVE) 05/12/24 13:56 Urine Glucose (UA) Negative (NEGATIVE) 05/12/24 13:56 Urine Ketones Negative (NEGATIVE) 05/12/24 13:56 Urine Blood 4+ (NEGATIVE) 05/12/24 13:56 Urine Nitrite Positive (NEGATIVE) 05/12/24 13:56 Urine Bilirubin Negative (NEGATIVE) 05/12/24 13:56 Urine Urobilinogen Normal (NORMAL) 05/12/24 13:56 Ur Leukocyte Esterase 3+ (NEGATIVE) 05/12/24 13:56 Urine RBC 3-5 /HPF (0-3) A 05/12/24 13:56 Urine WBC Tntc /HPF (0-5) A 05/12/24 13:56 Ur Squamous Epith Cells Rare /HPF (NEGATIVE) 05/12/24 13:56 Amorphous Sediment Trace /HPF (NEGATIVE) 05/12/24 13:56 Urine Bacteria Trace /HPF (NEGATIVE) 05/12/24 13:56 Hyaline Casts Few /LPF (NEGATIVE) 05/10/24 04:39 Urine Mucus Rare /HPF (NEGATIVE) 05/12/24 13:56 Ur Culture Indicated? Yes/culture set up 05/12/24 13:56 Stl Occult Blood (IFOB) Positive (NEGATIVE) A 05/09/24 23:57 Blood Type B POSITIVE 05/09/24 23:42 Antibody Screen Negative 05/09/24 23:42 Crossmatch See Detail 05/09/24 23:42 Assessment and Plan 1: severe anemia , corrected with transfusion recurrent GI bleeding . for EGD and colonoscopy in am .. clear liquid today . Problem Patient Problems: Patient Problems Acute GI bleeding (Acute) K92.2 Anemia (Acute) D64.9 Generalized weakness (Acute) R53.1 Cholecystitis (Acute) K81.9 Cholelithiasis (Acute) K80.20
[2024-05-13] MEDS: SUPREP BOWEL PREP KIT PO SCH (10:35)
[2024-05-13] MEDS: LEXAPRO ONE (14:37)
[2024-05-13] MEDS ORDERED: XOPENEX 1.25 MG/3 ML NEBULE NEB SCH (21:00)
[2024-05-13] MEDS ORDERED: PROTONIX INJ 40 MG VIAL ONE (21:47)
[2024-05-14] MEDS: NOZIN NASAL SANITIZER TP ONE (04:05)
[2024-05-14] MEDS: HIBICLENS WASH EXT ONE (04:36)
[2024-05-14 05:12] LABS: BASOPHILS % (AUTO) 0.5 % (0.2-1.0); EOSINOPHILS # (AUTO) 0.4 x10^3/uL (0.0-0.2); EOSINOPHILS % (AUTO) 5.4 % (0.9-2.9); HEMOGLOBIN 11.3 g/dL (12.0-16.0); LYMPHOCYTES # (AUTO) 2.4 X10^3/uL (1.3-2.9); LYMPHOCYTES % (AUTO) 33.5 % (21.0-51.0); MEAN CORPUSCULAR HEMOGLOBIN 30.7 pg (27.0-34.0); MEAN CORPUSCULAR HGB CONC 34.1 g/dL (33.0-35.0); MEAN CORPUSCULAR VOLUME 89.9 fL (80.0-100.0); MEAN PLATELET VOLUME 8.5 fL (7.4-11.0); MONOCYTES # (AUTO) 0.6 x10^3/uL (0.3-0.8); MONOCYTES % (AUTO) 7.9 % (0.0-13.0); NEUTROPHILS # (AUTO) 3.7 x10^3/uL (2.2-4.8); NEUTROPHILS % (AUTO) 52.7 % (42.0-75.0); PLATELET COUNT 233 X10^3/uL (150.0-450.0); RED BLOOD COUNT 3.67 X10^6/uL (3.5-5.4); RED CELL DISTRIBUTION WIDTH 17.6 % (11.6-16.5)
[2024-05-14 05:34] LABS: ALANINE AMINOTRANSFERASE 9 Units/L (12-78); ALBUMIN 2.5 g/dL (3.4-5.0); ALKALINE PHOSPHATASE 83 Units/L (46-116); ASPARTATE AMINO TRANSFERASE 12 Units/L (15-37); BLOOD UREA NITROGEN 9 mg/dL (7-18); CALCIUM 7.9 mg/dL (8.5-10.1); CARBON DIOXIDE 24.3 mmol/L (21-32); CHLORIDE 108 mmol/L (98-107); COR CA(FOR HYPOALB) 9.1 mg/dL (8.5-10.1); CREATININE 0.69 mg/dL (0.55-1.02); GLUCOSE 98 mg/dL (65-99); POTASSIUM 3.2 mmol/L (3.5-5.1); SODIUM 141 mmol/L (136-145); TOTAL PROTEIN 4.7 g/dL (6.4-8.2); eGFR NON BLACK RACES > 60 (>60)
[2024-05-14] MEDS ORDERED: CONSULT PHARMACY - POTASSIUM & MAGNESIUM XX SCH (06:00)
[2024-05-14] MEDS: NS 1,000 ML IV 1,000 ML ONE (09:23)
[2024-05-14] MEDS: K-RIDER 10 MEQ/100 ML WATER 10 MEQ/100 ML BAG IV SCH (10:01)
[2024-05-14] MEDS: NS 1,000 ML IV 200 ML IV PRN (10:26)
[2024-05-14] MEDS: DIPRIVAN VIAL 320 ML IVP PRN (10:29)
[2024-05-14] MEDS: DIPRIVAN VIAL 20 ML ONE ×2 (10:34)
--- NOTE | 2024-05-14 10:41 | DR.H&P ---
H&P History & Physical for Day of: H&P Date: 05/11/24 Chief Complaint Chief Complaint: fatigue History of Present Illness History of Present Illness: melinic stools and malaise Past Medical History Past Medical History: Anemia, Diabetes and Hypertension Past Surgical History Surgical History: Hysterectomy, Joint Replacement, Ortho Surgery and Tonsillectomy Family History Family Medical History: Diabetes Mellitus, Cancer and Hypertension Social History Does patient currently use any type of tobacco product: No Have you used tobacco products in the last 12 months: No Type of Tobacco Use: None Does any household member use tobacco: No Alcohol Use: None Drug Use: None Medications Home Medications: Home Medications Medication Instructions Recorded Confirmed Type allopurinol 300 mg tablet 300 mg PO QDAY 02/26/24 05/10/24 History cetirizine 10 mg tablet 10 mg PO QDAY 02/26/24 05/10/24 History pioglitazone 30 mg tablet 30 mg PO QDAY 02/26/24 05/10/24 History amlodipine 10 mg tablet 10 mg PO QDAY 05/10/24 05/10/24 History carvedilol 25 mg tablet 25 mg PO BID 05/10/24 05/10/24 History venlafaxine 150 mg tablet,extended 150 mg PO DAILY 05/10/24 05/10/24 History release 24 hr Allergies Allergies Allergy/AdvReac Type Severity Reaction Status Date / Time No Known Allergies Allergy Verified 05/09/24 23:58 Labs 05/14/24 05:00 05/14/24 05:00 Labs: 05/12/24 13:56 Urine,Catheterized Urine Culture - Final Escherichia Coli Laboratory WBC 7.0 X10^3/uL (3.6-10.0) 05/14/24 05:00 RBC 3.67 X10^6/uL (3.5-5.4) 05/14/24 05:00 Hgb 11.3 g/dL (12.0-16.0) L 05/14/24 05:00 Hct 33.0 % (36.0-47.0) L 05/14/24 05:00 MCV 89.9 fL (80.0-100.0) 05/14/24 05:00 MCH 30.7 pg (27.0-34.0) 05/14/24 05:00 MCHC 34.1 g/dL (33.0-35.0) 05/14/24 05:00 RDW 17.6 % (11.6-16.5) H 05/14/24 05:00 Plt Count 233 X10^3/uL (150.0-450.0) 05/14/24 05:00 MPV 8.5 fL (7.4-11.0) 05/14/24 05:00 Neut % (Auto) 52.7 % (42.0-75.0) 05/14/24 05:00 Lymph % (Auto) 33.5 % (21.0-51.0) 05/14/24 05:00 [place] % (Auto) 7.9 % (0.0-13.0) 05/14/24 05:00 Eos % (Auto) 5.4 % (0.9-2.9) H 05/14/24 05:00 Baso % (Auto) 0.5 % (0.2-1.0) 05/14/24 05:00 Neut # (Auto) 3.7 x10^3/uL (2.2-4.8) 05/14/24 05:00 Lymph # (Auto) 2.4 X10^3/uL (1.3-2.9) 05/14/24 05:00 [place] # (Auto) 0.6 x10^3/uL (0.3-0.8) 05/14/24 05:00 Eos # (Auto) 0.4 x10^3/uL (0.0-0.2) H 05/14/24 05:00 Baso # (Auto) 0.0 X10^3/uL (0.0-0.1) 05/14/24 05:00 Absolute Nucleated RBC 0.1 /100WBC 05/14/24 05:00 Absolute Retic 0.0848 10^6/uL 05/11/24 06:15 Percent Retic 3.51 % (0.8-2.2) H 05/11/24 06:15 PT 18.2 SECONDS (11.8-14.3) 05/10/24 05:55 INR Target Range - 05/10/24 05:55 INR 1.56 (0.8-1.3) H 05/10/24 05:55 APTT 29.6 SECONDS (22.9-36.5) 05/10/24 05:55 PTT Comment - 05/10/24 05:55 Sodium 141 mmol/L (136-145) 05/14/24 05:00 Corrected Sodium TNP 05/14/24 05:00 Potassium 3.2 mmol/L (3.5-5.1) L 05/14/24 05:00 Chloride 108 mmol/L (98-107) H 05/14/24 05:00 Carbon Dioxide 24.3 mmol/L (21-32) 05/14/24 05:00 BUN 9 mg/dL (7-18) 05/14/24 05:00 Creatinine 0.69 mg/dL (0.55-1.02) 05/14/24 05:00 Est GFR (MDRD) Af Amer > 60 (>60) 05/14/24 05:00 Est GFR (MDRD) Non-Af > 60 (>60) 05/14/24 05:00 Glucose 98 mg/dL (65-99) 05/14/24 05:00 Calcium 7.9 mg/dL (8.5-10.1) L 05/14/24 05:00 Corrected Calcium 9.1 mg/dL (8.5-10.1) 05/14/24 05:00 Magnesium 2.1 mg/dL (2.0-2.9) 05/14/24 05:00 Iron 36 ug/dL (50-175) L 05/11/24 06:15 TIBC 211 ug/dL (250-450) L 05/11/24 06:15 Ferritin 49 ng/mL (8-252) 05/11/24 06:15 Total Bilirubin 0.50 mg/dL (0.2-1.0) 05/14/24 05:00 AST 12 Units/L (15-37) L 05/14/24 05:00 ALT 9 Units/L (12-78) L 05/14/24 05:00 Alkaline Phosphatase 83 Units/L (46-116) 05/14/24 05:00 B-Natriuretic Peptide 40.3 pg/mL (0-79) 05/09/24 23:52 Total Protein 4.7 g/dL (6.4-8.2) L 05/14/24 05:00 Albumin 2.5 g/dL (3.4-5.0) L 05/14/24 05:00 Globulin 2.2 g/dL (2.5-4.5) L 05/14/24 05:00 Albumin/Globulin Ratio 1.1 Ratio (1.1-2.1) 05/14/24 05:00 Amylase 21 Units/L (25-115) L 05/09/24 21:55 Lipase 22 Units/L (16-77) 05/09/24 21:55 Vitamin B12 155 pg/mL (193-986) L 05/11/24 06:15 Folate 1.9 ng/mL (>8.6) L 05/11/24 06:15 Specimen Type Catherized urine 05/12/24 13:56 Urine Color Pale yellow (YELLOW) 05/12/24 13:56 Urine Appearance Hazy (CLEAR) 05/12/24 13:56 Urine pH 6.0 (5.0 - 8.0) 05/12/24 13:56 Ur Specific [place] 1.020 (1.000-1.030) 05/12/24 13:56 Urine Protein 2+ (NEGATIVE) 05/12/24 13:56 Urine Glucose (UA) Negative (NEGATIVE) 05/12/24 13:56 Urine Ketones Negative (NEGATIVE) 05/12/24 13:56 Urine Blood 4+ (NEGATIVE) 05/12/24 13:56 Urine Nitrite Positive (NEGATIVE) 05/12/24 13:56 Urine Bilirubin Negative (NEGATIVE) 05/12/24 13:56 Urine Urobilinogen Normal (NORMAL) 05/12/24 13:56 Ur Leukocyte Esterase 3+ (NEGATIVE) 05/12/24 13:56 Urine RBC 3-5 /HPF (0-3) A 05/12/24 13:56 Urine WBC Tntc /HPF (0-5) A 05/12/24 13:56 Ur Squamous Epith Cells Rare /HPF (NEGATIVE) 05/12/24 13:56 Amorphous Sediment Trace /HPF (NEGATIVE) 05/12/24 13:56 Urine Bacteria Trace /HPF (NEGATIVE) 05/12/24 13:56 Hyaline Casts Few /LPF (NEGATIVE) 05/10/24 04:39 Urine Mucus Rare /HPF (NEGATIVE) 05/12/24 13:56 Ur Culture Indicated? Yes/culture set up 05/12/24 13:56 Stl Occult Blood (IFOB) Positive (NEGATIVE) A 05/09/24 23:57 Blood Type B POSITIVE 05/09/24 23:42 Antibody Screen Negative 05/09/24 23:42 Crossmatch See Detail 05/09/24 23:42 Review of Systems Constitutional: No Symptoms Reported Eyes: No Symptoms Reported ENT: No Symptoms Reported Respiratory: No Symptoms Reported Cardiovascular: No Symptoms Reported Gastrointestinal: Nausea and Melena Genitourinary: No Symptoms Reported Musculoskeletal: No Symptoms Reported Skin: No Symptoms Reported Neurological: No Symptoms Reported Physical Exam Vital Signs: Vital Signs Temperature 98.0 F Temperature 99.5 F Pulse Rate 72 Pulse Rate 68 Pulse Rate 67 Pulse Rate 66 Pulse Rate 67 Respiratory Rate 21 Respiratory Rate 15 Respiratory Rate 18 Respiratory Rate 19 Respiratory Rate 17 Blood Pressure 126/57 Blood Pressure 127/60 Blood Pressure 141/60 Blood Pressure 137/60 Blood Pressure 127/55 O2 Sat by Pulse Oximetry 97 O2 Sat by Pulse Oximetry 99 O2 Sat by Pulse Oximetry 99 O2 Sat by Pulse Oximetry 99 O2 Sat by Pulse Oximetry 96 Oriented: Normal Eyes: Normal Ear: Normal Nose: Normal Throat: Normal Respiratory: Clear Throughout Cardiovascular: Normal : Normal Auscultation: Bowel Sounds: Normal Palpation: Normal Tenderness: Normal Skin: Normal Musculoskeletal: Normal Psychiatric: Normal Mood Description: Calm and Appropriate Affect: Normal Speech Pattern: Clear and Appropriate Assessment/Plan (1) Upper GI bleed: Status: Acute
[2024-05-14] MEDS: LEXAPRO ONE (11:43)
[2024-05-14] MEDS: K-RIDER 10 MEQ/100 ML WATER 10 MEQ/100 ML BAG IV ONE (15:51)
[2024-05-15 05:18] LABS: BASOPHILS # (AUTO) 0.1 X10^3/uL (0.0-0.1); BASOPHILS % (AUTO) 0.8 % (0.2-1.0); EOSINOPHILS # (AUTO) 0.3 x10^3/uL (0.0-0.2); EOSINOPHILS % (AUTO) 5.2 % (0.9-2.9); HEMATOCRIT 29.6 % (36.0-47.0); LYMPHOCYTES % (AUTO) 32.3 % (21.0-51.0); MEAN CORPUSCULAR HEMOGLOBIN 30.5 pg (27.0-34.0); MEAN CORPUSCULAR HGB CONC 33.8 g/dL (33.0-35.0); MEAN CORPUSCULAR VOLUME 90.1 fL (80.0-100.0); MEAN PLATELET VOLUME 9.1 fL (7.4-11.0); MONOCYTES # (AUTO) 0.5 x10^3/uL (0.3-0.8); MONOCYTES % (AUTO) 7.8 % (0.0-13.0); NEUTROPHILS # (AUTO) 3.3 x10^3/uL (2.2-4.8); NEUTROPHILS % (AUTO) 53.9 % (42.0-75.0); PLATELET COUNT 209 X10^3/uL (150.0-450.0); RED BLOOD COUNT 3.29 X10^6/uL (3.5-5.4); RED CELL DISTRIBUTION WIDTH 17.5 % (11.6-16.5); WHITE BLOOD COUNT 6.1 X10^3/uL (3.6-10.0)
[2024-05-15 05:36] LABS: ALANINE AMINOTRANSFERASE 8 Units/L (12-78); ALBUMIN 2.2 g/dL (3.4-5.0); ALKALINE PHOSPHATASE 74 Units/L (46-116); ASPARTATE AMINO TRANSFERASE 10 Units/L (15-37); BLOOD UREA NITROGEN 6 mg/dL (7-18); CALCIUM 7.7 mg/dL (8.5-10.1); CARBON DIOXIDE 24.9 mmol/L (21-32); CHLORIDE 109 mmol/L (98-107); COR CA(FOR HYPOALB) 9.1 mg/dL (8.5-10.1); CREATININE 0.64 mg/dL (0.55-1.02); GLUCOSE 100 mg/dL (65-99); SODIUM 142 mmol/L (136-145); TOTAL PROTEIN 4.2 g/dL (6.4-8.2); eGFR NON BLACK RACES > 60 (>60)
[2024-05-15] MEDS ORDERED: CONSULT PHARMACY - POTASSIUM & MAGNESIUM XX SCH (06:00)
[2024-05-15] MEDS ORDERED: LEXAPRO ONE (08:38)
[2024-05-15] MEDS: K-DUR TAB 20 MEQ PO SCH (08:53)
[2024-05-15 09:14] VITALS: BP 129/59; PULSE 74; RESP 18; TEMP 98.2; O2SAT 99
== END 2024-05-15 10:53 | disposition home or self-care (01) | DRG 378 ==
LOC: SUPCPDRO → ER 20:49 → U 05-10 02:05
PROVIDERS: ADMIT Internal Medicine; ATTEND Obstetrics & Gynecology Obstetrics
DX: F41.8 Other specified anxiety disorders; R13.11 Dysphagia, oral phase; K26.7 Chronic duodenal ulcer without hemorrhage or perforation; I10 Essential (primary) hypertension; K25.7 Chronic gastric ulcer without hemorrhage or perforation; R53.1 Weakness; K29.01 Acute gastritis with bleeding; Z16.23 Resistance to quinolones and fluoroquinolones; I87.2 Venous insufficiency (chronic) (peripheral); D12.6 Benign neoplasm of colon, unspecified; B96.29 Other Escherichia coli [E. coli] as the cause of diseases classified elsewhere; R79.1 Abnormal coagulation profile; K64.3 Fourth degree hemorrhoids; Z16.11 Resistance to penicillins; D64.89 Other specified anemias; R93.1 Abnormal findings on diagnostic imaging of heart and coronary circulation; E11.65 Type 2 diabetes mellitus with hyperglycemia; N39.0 Urinary tract infection, site not specified; D12.0 Benign neoplasm of cecum; R10.84 Generalized abdominal pain; E83.42 Hypomagnesemia; K80.12 Calculus of gallbladder with acute and chronic cholecystitis without obstruction; R00.0 Tachycardia, unspecified

== ENCOUNTER 2024-08-07 14:19 | Inpatient (IN) ==
[2024-08-07 14:53] VITALS: BMI 29.2
--- NOTE | 2024-08-07 15:08 | EKG ---
Test Reason : preop clearance Blood Pressure : */* mmHG Vent. Rate : 71 BPM Atrial Rate : 71 BPM P-R Int : 124 ms QRS Dur : 158 ms QT Int : 502 ms P-R-T Axes : 69 -47 68 degrees QTc Int : 545 ms Normal sinus rhythm Possible Left atrial enlargement Right bundle branch block Left anterior fascicular block Bifascicular block Abnormal ECG When compared with ECG of 10-MAY-2024 04:07, Vent. rate has decreased BY 43 BPM QRS duration has increased QRS voltage has increased Confirmed by Danny Henson MD ([id number]) on 08/08/2024 5:51:18 AM Referred By: Confirmed By: Danny Henson MD
--- NOTE | 2024-08-07 15:11 | DR.GENAD ---
HPI Time Seen Time Seen by Provider: 08/07/24 14:51 PCP Primary Care Physician: Maritza HPI Comment HPI Comment: Patient states she started having symptoms of difficulty swallowing around February. Patient states she had difficulty swallowing fluids and solids. She was seen by Dr. Aragon today and since it has become progressively more difficult for her to swallow, waiting for the scheduled EGD was giving her anxiety and making her get itchy. She came to the ER so we could do presurgical clearance and have EGD done today and Dr. Aragon and Dr. Buchanan were kind enough to make arrangements for this. Since coming to the ER and the EGD being planned for today her anxiety has subsided and is no longer feeling itchy. Complaint/Symptoms Chief Complaint:: Pt c/o "I can't swallow for months"; states she can't eat or drink and can barely take her meds d/t difficulty swallowing. She states "I'm itching all over; I feel like I'm about to have a nervous breakdown because of this". She states she was at [facility] today and was advised to come to the ER for Dr. Davison to "take me to surgery". She states Dr. Aragon and Dr. Davison talked on the phone [employer]. Pt states her throat hurts "constantly", rates 10/10 "because I'm desperate". She states Dr. Aragon told her she is itching all over "because of my nerves". COVID-19 Coronavirus risk:travel/contact w/high risk person: No Has patient experienced Coronavirus symptoms: No Source History Provided: Patient Mode of Arrival Mode of Arrival: Wheelchair Timing Onset of Chief Complaint: 08/07/24 PMH PMH Past Medical History: Yes Past Medical History: Anemia, Diabetes and Hypertension Past Medical History Comment: diverticulosis Past Surgical History: Yes Surgical History: Hysterectomy, Joint Replacement, Ortho Surgery and Tonsillectomy Family History History of Family Medical Conditions: Yes Family Medical History: Diabetes Mellitus, Cancer and Hypertension Social History Alcohol Use: Rarely Do you use any recreational Drugs:: No Lives With: Spouse Lives Where: Home Travel Risk Coronavirus risk:travel/contact w/high risk person: No Has patient experienced Coronavirus symptoms: No Infectious screening In the last 2 months have you had wt loss of >10#?: YES Have you had fever, night sweats or hemotysis?: No Have you traveled outside the country in the last 6 months?: No Isolation: Standard ROS Review of Systems Constitutional: No Symptoms Reported Eyes: No Symptoms Reported ENTM: No Symptoms Reported Respiratoy: No Symptoms Reported Cardiovascular: No Symptoms Reported Gastrointestinal/Abdominal: See HPI Genitourinary: No Symptoms Reported Neurological: No Symptoms Reported Musculoskeletal: No Symptoms Reported Integumentary: No Symptoms Reported Hematologic/Lymphatic: No Symptoms Reported Endocrine: No Symptoms Reported Psychiatric: No Symptoms Reported All Other Systems: Reviewed and Negative PE Vital Signs Vitals: Vital Signs Temperature 98.3 F Pulse Rate 77 Respiratory Rate 16 Blood Pressure 178/79 O2 Sat by Pulse Oximetry 97 General Limitations: No Limitations General Appearance: Alert and In No Apparent Distress Head Head Exam: Normal Inspection Eyes Eye exam: Normal Appearance ENT ENT Exam: Normal Exam External Ear Exam: Normal External Inspection TM/Canal Exam: Bilateral: Normal Nose Exam: Normal Nose Exam Mouth Exam: Normal Inspection Throat Exam: Normal Inspection Neck Neck Exam: Normal Inspection Chest Chest Inspection: Normal Inspection Respiratory Respiratory Exam: Normal Lung Sounds Bilat Respiratory Exam: Bilateral: Clear to Auscultation Cardiovascular Cardiovascular Exam: Regular Rate and Normal Rhythm Abdominal Exam Abdominal Exam: Normal Inspection, Normal Bowel Sounds and Soft Extremities Extremities Exam: Normal Inspection Back Back Exam: Normal Inspection Neurologic Neurological Exam: Alert and Oriented X3 Psychiatric Psychiatric Exam: Normal Affect and Normal Mood Skin Skin Exam: Warm, Dry, Intact and Normal Color COURSE Treatment Treatment: Patient's potassium came back low at 2.5. Given her inability to take p.o. and will be a long period time until we can replace with IV potassium. Discussed case with surgeon and Dr. Aragon and they are agreeable with admission to correct her potassium and plan EGD for tomorrow. However, when informing patient of change in plan she became anxious and requested we give her something for anxiety and for itching because when she gets anxious she gets itchy. She states that Benadryl usually works. She has no visible rash at this time. Consultation Called: 16:24 Consultation Comments: Discussed case with surgeon and Dr. Aragon. They are agreeable with admission. [facility] Labs Reviewed 08/07/24 15:07 08/07/24 15:07 Laboratory: WBC 8.3 X10^3/uL (3.6-10.0) 08/07/24 15:07 RBC 4.95 X10^6/uL (3.5-5.4) 08/07/24 15:07 Hgb 14.0 g/dL (12.0-16.0) 08/07/24 15:07 Hct 43.2 % (36.0-47.0) 08/07/24 15:07 MCV 87.4 fL (80.0-100.0) 08/07/24 15:07 MCH 28.3 pg (27.0-34.0) 08/07/24 15:07 MCHC 32.4 g/dL (33.0-35.0) L 08/07/24 15:07 RDW 17.5 % (11.6-16.5) H 08/07/24 15:07 Plt Count 270 X10^3/uL (150.0-450.0) 08/07/24 15:07 MPV 9.7 fL (7.4-11.0) 08/07/24 15:07 Neut % (Auto) 64.9 % (42.0-75.0) 08/07/24 15:07 Lymph % (Auto) 22.7 % (21.0-51.0) 08/07/24 15:07 [place] % (Auto) 6.7 % (0.0-13.0) 08/07/24 15:07 Eos % (Auto) 1.2 % (0.9-2.9) 08/07/24 15:07 Baso % (Auto) 4.5 % (0.2-1.0) H 08/07/24 15:07 Neut # (Auto) 5.4 x10^3/uL (2.2-4.8) H 08/07/24 15:07 Lymph # (Auto) 1.9 X10^3/uL (1.3-2.9) 08/07/24 15:07 [place] # (Auto) 0.6 x10^3/uL (0.3-0.8) 08/07/24 15:07 Eos # (Auto) 0.1 x10^3/uL (0.0-0.2) 08/07/24 15:07 Baso # (Auto) 0.4 X10^3/uL (0.0-0.1) H 08/07/24 15:07 Absolute Nucleated RBC 0.0 /100WBC 08/07/24 15:07 PT 15.8 SECONDS (11.8-14.3) 08/07/24 15:07 INR Target Range - 08/07/24 15:07 INR 1.25 (0.8-1.3) 08/07/24 15:07 APTT 26.8 SECONDS (22.9-36.5) 08/07/24 15:07 PTT Comment - 08/07/24 15:07 Sodium 146 mmol/L (136-145) H 08/07/24 15:07 Corrected Sodium TNP 08/07/24 15:07 Potassium 2.4 mmol/L (3.5-5.1) L* 08/07/24 15:07 Chloride 104 mmol/L (98-107) 08/07/24 15:07 Carbon Dioxide 27.0 mmol/L (21-32) 08/07/24 15:07 BUN 31 mg/dL (7-18) H 08/07/24 15:07 Creatinine 1.35 mg/dL (0.55-1.02) H 08/07/24 15:07 Est GFR (MDRD) Af Amer 49 (>60) L 08/07/24 15:07 Est GFR (MDRD) Non-Af 41 (>60) L 08/07/24 15:07 Glucose 109 mg/dL (65-99) H 08/07/24 15:07 Hemoglobin A1c 5.4 % 08/07/24 15:35 Calcium 8.7 mg/dL (8.5-10.1) 08/07/24 15:07 Corrected Calcium TNP 08/07/24 15:07 Total Bilirubin 1.10 mg/dL (0.2-1.0) H 08/07/24 15:07 AST 12 Units/L (15-37) L 08/07/24 15:07 ALT 11 Units/L (12-78) L 08/07/24 15:07 Alkaline Phosphatase 89 Units/L (46-116) 08/07/24 15:07 Total Protein 6.6 g/dL (6.4-8.2) 08/07/24 15:07 Albumin 4.0 g/dL (3.4-5.0) 08/07/24 15:07 Globulin 2.6 g/dL (2.5-4.5) 08/07/24 15:07 Albumin/Globulin Ratio 1.5 Ratio (1.1-2.1) 08/07/24 15:07 Opioid Opioid Risk Tool Age (Odilon box if 16-45): No History of Preadolescent Sexual Abuse: No Total: 0 Total Score Risk Category: Low Risk Copyright: Blu GRIGGS predicting aberrant behaviors Discharge Plan Diagnosis Discharge Problem: Dysphagia, Hypokalemia Discharge Plan Patient Disposition: ADMITTED INPATIENT Condition: Stable Prescriptions: No Action carvedilol 12.5 mg tablet 12.5 mg PO BID hydroxyzine pamoate 25 mg capsule 25 mg PO BID PRN (Reason: itch) escitalopram oxalate 10 mg tablet 10 mg PO QDAY Health Concerns: Post Hospitalization: new medications and changes needed to prevent readmission or further decline. Pt educated and given instructions on all concerns. Plan of Treatment: Continue with present treatment and follow up plan. Pt is to keep follow up appointment as instructed and take medications as ordered. Orders to Discharge Patient Discharge Orders: Transfer (Routine); Ordered 08/07/24 Ordered By: Prakash Acosta Follow ups/Referrals Follow ups/Referrals: SANNA ARAGON [Primary Care Provider, MEDICAL] - 3 days Instructions Stand Alone Forms: Find Help Web Site, Post Hospital Follow Up Care Print Language: SIERRA LEONEAN
[2024-08-07 15:17] LABS: MEAN PLATELET VOLUME 9.7 fL (7.4-11.0); RED CELL DISTRIBUTION WIDTH 17.5 % (11.6-16.5)
[2024-08-07] MEDS: NS 500 ML IV 500 ML IV ONE (15:20)
[2024-08-07 15:24] LABS: INR 1.25 (0.8-1.3)
[2024-08-07] MEDS: DIPRIVAN VIAL 0 ML ONE (15:52)
[2024-08-07] MEDS: ZOFRAN INJ 4 MG VIAL ONE (15:54)
[2024-08-07 16:02] LABS: CREATININE 1.35 mg/dL (0.55-1.02); eGFR NON BLACK RACES 41 (>60)
[2024-08-07] MEDS: K-RIDER 10 MEQ/100 ML WATER 10 MEQ/100 ML BAG IV ONE ×2 (16:18→19:43)
[2024-08-07] MEDS: BENADRYL INJ 50 MG VIAL IV ONE (16:26)
[2024-08-07] MEDS ORDERED: ATIVAN INJ 2 MG VIAL IVP ONE (16:46)
[2024-08-07] MEDS: VALIUM INJ IVP ONE (16:52)
[2024-08-07] MEDS ORDERED: BENADRYL INJ 50 MG VIAL IVP PRN (17:14)
[2024-08-07] MEDS ORDERED: NovoLIN R (or HumuLIN R) SUBCUT PRN (17:14)
[2024-08-07] MEDS ORDERED: APRESOLINE INJ 20 MG VIAL IVP PRN (17:14)
[2024-08-07] MEDS ORDERED: ATIVAN INJ 2 MG VIAL IVP PRN (17:56)
[2024-08-07] MEDS: NS 1,000 ML IV 1,000 ML IV SCH (18:06)
[2024-08-07] MEDS: MAGNESIUM SULFATE 1 GRAM/100 mL PREMIX 1 G/100 ML BAG IV SCH (18:28)
[2024-08-07] MEDS: VALIUM INJ IVP PRN (18:35)
[2024-08-07] MEDS: CONSULT PHARMACY - POTASSIUM & MAGNESIUM XX SCH (19:43)
[2024-08-07] MEDS: SNACK - Diabetic Appropriate PO SCH (20:00)
[2024-08-07] MEDS: K-RIDER 10 MEQ/100 ML WATER 10 MEQ/100 ML BAG IV SCH (21:51)
[2024-08-07] MEDS: BENADRYL INJ 50 MG VIAL IVP PRN (21:51)
[2024-08-08 00:24] LABS: BLOOD/HEMOGLOBIN,URINE 1+ (NEGATIVE); LEUKOCYTE ESTERASE ,URINE 2+ (NEGATIVE); NITRITES,URINE NEGATIVE (NEGATIVE)
[2024-08-08 00:26] LABS: APPEARANCE,URINE SLIGHTLY HAZY (CLEAR)
[2024-08-08 00:40] LABS: HYALINE CASTS, URINE MANY /LPF (NEGATIVE); SQUAMOUS EPITHELIAL CELL,UR NUMEROUS /HPF (NEGATIVE); YEAST,URINE FEW /HPF (NEGATIVE)
[2024-08-08] MEDS: K-RIDER 10 MEQ/100 ML WATER 10 MEQ/100 ML BAG IV SCH ×2 (03:28→23:49)
[2024-08-08 05:50] LABS: MEAN PLATELET VOLUME 10.1 fL (7.4-11.0); RED CELL DISTRIBUTION WIDTH 17.0 % (11.6-16.5)
[2024-08-08 06:01] LABS: CREATININE 1.13 mg/dL (0.55-1.02); eGFR NON BLACK RACES 50 (>60)
--- NOTE | 2024-08-08 06:08 | EKG ---
Test Reason : Preop Blood Pressure : */* mmHG Vent. Rate : 63 BPM Atrial Rate : 63 BPM P-R Int : 124 ms QRS Dur : 150 ms QT Int : 514 ms P-R-T Axes : 77 -58 63 degrees QTc Int : 525 ms Normal sinus rhythm Right bundle branch block Left anterior fascicular block Bifascicular block Abnormal ECG When compared with ECG of 07-AUG-2024 15:00, No significant change was found Confirmed by Danny Henson MD ([id number]) on 08/08/2024 10:35:21 AM Referred By: Confirmed By: Danny Henson MD
[2024-08-08] MEDS: NS 500 ML IV 500 ML with POTASSIUM CHLORIDE INJ 40 MEQ VIAL 60 MEQ IV NR (08:00)
--- NOTE | 2024-08-08 08:34 | RAD ---
EXAM: CHEST, 1 VIEW HISTORY: preop clearance, dysphagia; COMPARISON: 05/11/2024 FINDINGS: Mass in the left apex measures about 7 cm, probably not changed significantly. Lungs are well inflated with no significant abnormality. No pleural effusion or pneumonia. Heart size is normal. The bones are unremarkable. IMPRESSION: 1. No acute findings 2. Left apical lung mass THIS IS AN ELECTRONICALLY VERIFIED FINAL REPORT 08/08/2024 8:19 AM - Electronically signed by Wilmer Poole MD
[2024-08-08] MEDS: NS 1,000 ML IV 1,000 ML IV SCH (08:56)
[2024-08-08] MEDS ORDERED: PHARMACY CONSULT XX SCH (09:00)
[2024-08-08] MEDS: LOVENOX INJ 40 MG SYR SC SCH (09:13)
[2024-08-08] MEDS: D5 1/2 NS 1,000 ML 1,000 ML IV SCH (17:04)
[2024-08-08] MEDS: LOPRESSOR INJ 5 MG AMP IVP PRN (17:04)
[2024-08-08] MEDS: D50W ABBOJECT SYR IV ONE (17:53)
[2024-08-08] MEDS: D50W ABBOJECT SYR ONE (17:54)
[2024-08-08] MEDS: CONSULT PHARMACY - POTASSIUM & MAGNESIUM XX SCH (19:25)
[2024-08-08 20:15] LABS: CREATININE 0.95 mg/dL (0.55-1.02); eGFR NON BLACK RACES > 60 (>60)
[2024-08-08] MEDS ORDERED: CONSULT PHARMACY - POTASSIUM & MAGNESIUM XX SCH (23:45)
[2024-08-09 05:37] LABS: MEAN PLATELET VOLUME 9.9 fL (7.4-11.0); RED CELL DISTRIBUTION WIDTH 17.5 % (11.6-16.5)
[2024-08-09 05:52] LABS: COR CA(FOR HYPOALB) 8.9 mg/dL (8.5-10.1); CREATININE 0.79 mg/dL (0.55-1.02); eGFR NON BLACK RACES > 60 (>60)
[2024-08-09] MEDS ORDERED: CONSULT PHARMACY - POTASSIUM & MAGNESIUM XX SCH (07:00)
[2024-08-09] MEDS: DIPRIVAN VIAL 20 ML ONE (07:33)
[2024-08-09] MEDS: NS 1,000 ML IV 1,000 ML ONE (07:33)
[2024-08-09] MEDS: XYLOCAINE 2 % (PLAIN) ONE (07:33)
[2024-08-09] MEDS: NS 1,000 ML IV 0 ML IV PRN (07:35)
[2024-08-09] MEDS ORDERED: XYLOCAINE 2 % (PLAIN) PRN (07:38)
[2024-08-09] MEDS: DIPRIVAN VIAL 100 ML IVP PRN (07:39)
[2024-08-09] MEDS ORDERED: DECADRON INJ ONE (07:48)
[2024-08-09] MEDS: DECADRON INJ IVP PRN (07:49)
[2024-08-09] MEDS ORDERED: OMNIPAQUE 350 mg/mL 100 mL BTL 100 ML ONE (08:46)
[2024-08-09] MEDS ORDERED: NS + KCL 40 MEQ/L 1,000 ML IV SCH (09:00)
[2024-08-09] MEDS: NS 500 ML IV 500 ML with POTASSIUM CHLORIDE INJ 40 MEQ VIAL 40 MEQ IV NR (09:38)
--- NOTE | 2024-08-09 10:09 | CT ---
EXAM: SOFT TISSUE NECK W&W/O HISTORY: UNABLE TO PASS EGD SCOPE, ESOPHAGEAL MASS; HTN, DM, ANEMIA SX: HYST, ORTHO, TONSILS COMPARISON: None TECHNIQUE: CT of the neck obtained without and with IV contrast. Sagittal and coronal reformatted images were performed. Dose reduction techniques including Automated Exposure Control (AEC) and adjustment of mA and kV were utilized. FINDINGS: The visualized intracranial structures and bilateral orbits demonstrate no significant abnormality. Visualized paranasal sinuses and mastoid air cells appear well pneumatized. Heterogeneously enhancing mass involving the posterior hypopharynx and proximal esophagus with overall size measuring approximately 1.9 x 4.4 x 7.3 cm (AP, transverse, cc) The salivary glands appear symmetric and unremarkable. No cervical chain adenopathy. The thyroid is unremarkable. No acute fracture. The visualized vasculature in the neck demonstrates no acute process. Left apical pulmonary mass measuring approximately 6.5 x 6.9 x 5.9 cm (AP, transverse, cc). IMPRESSION: Soft tissue mass involving the posterior hypopharynx and proximal esophagus with overall extent measuring approximately 1.9 x 4.4 x 7.3 cm concerning for malignancy. The airway remains patent. Mass in the left lung apex measuring 6.5 x 6.9 x 5.9 cm concerning for malignancy/metastasis. THIS IS AN ELECTRONICALLY VERIFIED FINAL REPORT 08/09/2024 10:06 AM - Electronically signed by Delta Person MD
[2024-08-09 16:30] VITALS: RESP 20
[2024-08-09 19:56] VITALS: BP 159/75; PULSE 69; TEMP 98; O2SAT 97
== END 2024-08-09 19:35 | disposition short-term general hospital (02) | DRG 392 ==
LOC: MED/SURG 14:19 → ER 14:19 → OBSVTOIN 16:36 → MED/SURG 17:05
PROVIDERS: ADMIT Obstetrics & Gynecology Obstetrics; ATTEND Obstetrics & Gynecology Obstetrics
DX: R94.5 Abnormal results of liver function studies; C15.3 Malignant neoplasm of upper third of esophagus; I45.19 Other right bundle-branch block; E87.0 Hyperosmolality and hypernatremia; E11.65 Type 2 diabetes mellitus with hyperglycemia; E87.6 Hypokalemia; I10 Essential (primary) hypertension; R94.31 Abnormal electrocardiogram [ECG] [EKG]; Z01.810 Encounter for preprocedural cardiovascular examination; F41.8 Other specified anxiety disorders; R13.14 Dysphagia, pharyngoesophageal phase; R91.8 Other nonspecific abnormal finding of lung field; E83.42 Hypomagnesemia

== ENCOUNTER 2024-08-25 10:44 | Observation (INO) ==
--- NOTE | 2024-08-25 11:17 | DR.GENAD ---
HPI Time Seen Time Seen by Provider: 08/25/24 11:17 PCP Primary Care Physician: Dr. Aragon HPI Comment HPI Comment: Pt has hx of lung cancer and head and neck cancer. Currently was admitted under hospice after discharged form [facility] this week. Pt has been in severe pain in her neck and back. Was advised and given oral morphine but patients have not and did not use it. Due to her having difficulty in taking care of her and don't know what to do called EMS before talking with hospice. Here for pain management and possible admission to long term and hospice care there Complaint/Symptoms Chief Complaint Doctors Comments: pain Chief Complaint:: Pt c/o worsening chronic sciatic pain in the left hip that radiates into the left knee. Pt denies any new injury. Pt was discharged home from [facility] yesterday under the care of home hospice. COVID-19 Coronavirus risk:travel/contact w/high risk person: No Has patient experienced Coronavirus symptoms: No Nurses notes reviewed Nurses Notes Review: Yes Source History Provided: Patient, EMS and Other Mode of Arrival Mode of Arrival: EMS Timing Onset of Chief Complaint: 08/25/24 Came on: Gradually Duration Duration: Since Onset Duration: Days and Weeks Severity Severity: Severe PMH PMH Past Medical History: Yes Past Medical History: Anemia, CHF, Diabetes and Hypertension Past Medical History Comment: hemorrhoids, lung cancer, throat cancer, diverticulosis Past Surgical History: Yes Surgical History: Hysterectomy, Joint Replacement, Ortho Surgery and Tonsillectomy Family History History of Family Medical Conditions: Yes Family Medical History: Diabetes Mellitus, Cancer and Hypertension Social History Does patient currently use any type of tobacco product: No Have you used tobacco products in the last 12 months: No Type of Tobacco Use: None Does any household member use tobacco: No Alcohol Use: Rarely Do you use any recreational Drugs:: No Lives With: Spouse Lives Where: Home Travel Risk Coronavirus risk:travel/contact w/high risk person: No Has patient experienced Coronavirus symptoms: No Infectious screening In the last 2 months have you had wt loss of >10#?: NO Have you had fever, night sweats or hemotysis?: No Have you traveled outside the country in the last 6 months?: No Isolation: Standard ROS Review of Systems Constitutional: Malaise, Irritable and Loss of Appetite Eyes: Other (tearful) ENTM: Throat Pain Respiratoy: No Symptoms Reported Cardiovascular: No Symptoms Reported Gastrointestinal/Abdominal: No Symptoms Reported Genitourinary: No Symptoms Reported Neurological: Depressed Musculoskeletal: See HPI Integumentary: No Symptoms Reported Hematologic/Lymphatic: No Symptoms Reported PE Vital Signs Vitals: Vital Signs Temperature 98.7 F Pulse Rate [Left Radial] 85 Pulse Rate [Left Radial] 86 Pulse Rate [Left Radial] 82 Pulse Rate 87 Respiratory Rate 20 Respiratory Rate 20 Respiratory Rate 18 Respiratory Rate 20 Respiratory Rate 17 Respiratory Rate 18 Respiratory Rate 13 Respiratory Rate 20 Blood Pressure [Right Arm] 168/73 Blood Pressure [Right Arm] 179/76 Blood Pressure [Right Arm] 178/118 Blood Pressure 200/36 O2 Sat by Pulse Oximetry 98 O2 Sat by Pulse Oximetry 98 O2 Sat by Pulse Oximetry 97 O2 Sat by Pulse Oximetry 98 General General Appearance: Alert, Anxious and In Distress Head Head Exam: Normal Inspection, Atraumatic and Normocephalic Eyes Eye exam: Normal Appearance, PERRL (tearful) and EOMI ENT ENT Exam: Mucous Membranes Moist Neck Neck Exam: Normal Inspection Respiratory Respiratory Exam: Normal Lung Sounds Bilat Respiratory Exam: Bilateral: Clear to Auscultation Cardiovascular Cardiovascular Exam: +S1 and +S2 Abdominal Exam Abdominal Exam: Normal Inspection, Normal Bowel Sounds and Soft (PEG tube in place ) Extremities Extremities Exam: Normal Inspection Psychiatric Psychiatric Exam: Anxious Skin Skin Exam: Normal Color MDM Additional Information Additional Information Obtained From: Old Records Findings: head and neck cancer .on hospice .hx of pain ,PEG tube in place COURSE Treatment Treatment: labs,iv ,morphine zofran ,admit for pain management and long term placement with hospice [facility]OR Labs Reviewed 08/25/24 11:17 08/25/24 11:17 Laboratory: WBC 8.5 X10^3/uL (3.6-10.0) 08/25/24 11:17 RBC 4.07 X10^6/uL (3.5-5.4) 08/25/24 11:17 Hgb 11.8 g/dL (12.0-16.0) L 08/25/24 11:17 Hct 35.4 % (36.0-47.0) L 08/25/24 11:17 MCV 87.0 fL (80.0-100.0) 08/25/24 11:17 MCH 29.0 pg (27.0-34.0) 08/25/24 11:17 MCHC 33.3 g/dL (33.0-35.0) 08/25/24 11:17 RDW 18.7 % (11.6-16.5) H 08/25/24 11:17 Plt Count 373 X10^3/uL (150.0-450.0) 08/25/24 11:17 MPV 9.2 fL (7.4-11.0) 08/25/24 11:17 Neut % (Auto) 87.3 % (42.0-75.0) H 08/25/24 11:17 Lymph % (Auto) 5.9 % (21.0-51.0) L 08/25/24 11:17 [place] % (Auto) 5.8 % (0.0-13.0) 08/25/24 11:17 Eos % (Auto) 0.6 % (0.9-2.9) L 08/25/24 11:17 Baso % (Auto) 0.4 % (0.2-1.0) 08/25/24 11:17 Neut # (Auto) 7.4 x10^3/uL (2.2-4.8) H 08/25/24 11:17 Lymph # (Auto) 0.5 X10^3/uL (1.3-2.9) L 08/25/24 11:17 [place] # (Auto) 0.5 x10^3/uL (0.3-0.8) 08/25/24 11:17 Eos # (Auto) 0.0 x10^3/uL (0.0-0.2) 08/25/24 11:17 Baso # (Auto) 0.0 X10^3/uL (0.0-0.1) 08/25/24 11:17 Absolute Nucleated RBC 0.0 /100WBC 08/25/24 11:17 Sodium 139 mmol/L (136-145) 08/25/24 11:17 Corrected Sodium 139 mmol/L (136-145) 08/25/24 11:17 Potassium 4.0 mmol/L (3.5-5.1) 08/25/24 11:17 Chloride 102 mmol/L (98-107) 08/25/24 11:17 Carbon Dioxide 34.3 mmol/L (21-32) H 08/25/24 11:17 BUN 14 mg/dL (7-18) 08/25/24 11:17 Creatinine 0.63 mg/dL (0.55-1.02) 08/25/24 11:17 Est GFR (MDRD) Af Amer > 60 (>60) 08/25/24 11:17 Est GFR (MDRD) Non-Af > 60 (>60) 08/25/24 11:17 Glucose 114 mg/dL (65-99) H 08/25/24 11:17 Calcium 8.5 mg/dL (8.5-10.1) 08/25/24 11:17 Corrected Calcium 10.2 mg/dL (8.5-10.1) H 08/25/24 11:17 Total Bilirubin 1.00 mg/dL (0.2-1.0) 08/25/24 11:17 AST 16 Units/L (15-37) 08/25/24 11:17 ALT 13 Units/L (12-78) 08/25/24 11:17 Alkaline Phosphatase 132 Units/L (46-116) H 08/25/24 11:17 Total Protein 5.6 g/dL (6.4-8.2) L 08/25/24 11:17 Albumin 1.9 g/dL (3.4-5.0) L 08/25/24 11:17 Globulin 3.7 g/dL (2.5-4.5) 08/25/24 11:17 Albumin/Globulin Ratio 0.5 Ratio (1.1-2.1) L 08/25/24 11:17 Opioid Opioid Risk Tool Age (Odilon box if 16-45): No History of Preadolescent Sexual Abuse: No Total: 0 Total Score Risk Category: Low Risk Copyright: Blu GRIGGS predicting aberrant behaviors Discharge Plan Diagnosis Discharge Problem: History of head and neck cancer, Chronic pain, DNR no code (do not resuscitate) Discharge Plan Patient Disposition: 01 HOME, SELF-CARE Condition: Stable Prescriptions: Discontinued morphine 100 mg/5 mL Concentrate See Rx Instructions .ROUTE .COMPLEX Rx Instructions: take as directed hydroxyzine pamoate 25 mg capsule 25 mg PO BID PRN (Reason: itch) escitalopram oxalate 10 mg tablet 10 mg PO QDAY No Action carvedilol 12.5 mg tablet 12.5 mg PO BID Health Concerns: Post Hospitalization: new medications and changes needed to prevent readmission or further decline. Pt educated and given instructions on all concerns. Plan of Treatment: Continue with present treatment and follow up plan. Pt is to keep follow up appointment as instructed and take medications as ordered. Orders to Discharge Patient Discharge Orders: Transfer (Routine); Ordered 08/25/24 Ordered By: Lucho Jimenez Follow ups/Referrals Follow ups/Referrals: SANNA ARAGON [Primary Care Provider, MEDICAL] - 3 days Instructions Stand Alone Forms: Find Help Web Site, Post Hospital Follow Up Care Print Language: GUAMANIAN
[2024-08-25] MEDS: ZOFRAN INJ 4 MG VIAL IVP ONE (11:25)
[2024-08-25 11:27] LABS: MEAN PLATELET VOLUME 9.2 fL (7.4-11.0); RED CELL DISTRIBUTION WIDTH 18.7 % (11.6-16.5)
[2024-08-25] MEDS: MORPHINE SULFATE INJ 2 MG INJ IVP ONE ×2 (11:29→11:41)
[2024-08-25 11:37] LABS: COR CA(FOR HYPOALB) 10.2 mg/dL (8.5-10.1); COR NA(FOR HYPERGLY) 139 mmol/L (136-145); CREATININE 0.63 mg/dL (0.55-1.02); eGFR NON BLACK RACES > 60 (>60)
[2024-08-25] MEDS ORDERED: MORPHINE SULFATE ORAL SOLN UDC PO SCH (12:00)
[2024-08-25] MEDS ORDERED: DILAUDID INJ IVP ONE (12:44)
[2024-08-25] MEDS ORDERED: DILAUDID INJ ONE (12:46)
[2024-08-25] MEDS: DILAUDID INJ IVP ONE (12:48)
[2024-08-25] MEDS: DILAUDID INJ IVP PRN (17:35)
--- NOTE | 2024-08-25 21:47 | EKG ---
Test Reason : hypertension protocol Blood Pressure : */* mmHG Vent. Rate : 80 BPM Atrial Rate : 80 BPM P-R Int : 130 ms QRS Dur : 138 ms QT Int : 384 ms P-R-T Axes : 74 -33 34 degrees QTc Int : 442 ms Normal sinus rhythm Possible Left atrial enlargement Left axis deviation Right bundle branch block Abnormal ECG When compared with ECG of 08-AUG-2024 06:07, QT has shortened Confirmed by Danny Henson MD ([id number]) on 08/26/2024 6:27:50 AM Referred By: Confirmed By: Danny Henson MD
[2024-08-26] MEDS: APRESOLINE INJ 20 MG VIAL IVP ONE (03:17)
[2024-08-26] MEDS: CATAPRES TAB 0.1 MG PO ONE ×2 (03:30→03:31)
[2024-08-26 06:55] LABS: MEAN PLATELET VOLUME 9.5 fL (7.4-11.0); RED CELL DISTRIBUTION WIDTH 19.2 % (11.6-16.5)
[2024-08-26 07:08] LABS: COR CA(FOR HYPOALB) 10.4 mg/dL (8.5-10.1); CREATININE 0.68 mg/dL (0.55-1.02); eGFR NON BLACK RACES > 60 (>60)
[2024-08-26] MEDS ORDERED: VALIUM INJ IVP PRN (11:03)
--- NOTE | 2024-08-26 11:17 | DR.H&P ---
H&P History & Physical for Day of: H&P Date: 08/26/24 Chief Complaint Chief Complaint: worsening pain History of Present Illness History of Present Illness: Patient is a 74-year-old female with a recent diagnosis of throat cancer and dysphagia. She does have a history of anemia, CHF, diabetes and hypertension. She was recently discharged from [facility] in [place] after PEG tube placement. She was sent home on hospice services but patient's was not able to manage her pain at home. She was brought to the ER for pain control and possible half-way placement. She had presented to [facility] earlier this month for dysphagia and found to have a mass on EGD. She states after she got home on Tuesday, she started having worsening sciatic pain. She states she hurts all over and just wants her pain to be controlled. ER workup included labs. She was started on IV Dilaudid as needed. She states that has been helping but she does feel anxious at times. She prefers to go to half-way as she does not have help at home. She states she does not want hospice services. Labs/imaging reviewed: - WBC 7.9 hemoglobin 11.3 potassium 3.7 creatinine 0.68 Plan: Admit to [facility]. Continue pain control. Add Valium as needed. Resume home medications. Replace electrolytes as per protocol. Resume PEG tube feeds. Dietitian consult. CM to work on half-way placement tomorrow. Monitor a.m. labs and imaging. Past Medical History Past Medical History: Anemia, CHF, Diabetes and Hypertension Past Surgical History Surgical History: Hysterectomy, Joint Replacement, Ortho Surgery, Tonsillectomy and Other Family History Family Medical History: Diabetes Mellitus, Cancer and Hypertension Social History Does patient currently use any type of tobacco product: No Have you used tobacco products in the last 12 months: No Type of Tobacco Use: None Does any household member use tobacco: No Alcohol Use: Rarely Drug Use: None Medications Home Medications: Home Medications Medication Instructions Recorded Confirmed Type carvedilol 12.5 mg tablet 12.5 mg PO BID 07/24/2408/07 History Allergies Allergies Allergy/AdvReac Type Severity Reaction Status Date / Time No Known Allergies Allergy Verified 08/07/24 14:20 Labs 08/26/24 05:22 08/26/24 05:22 Labs: Laboratory WBC 7.9 X10^3/uL (3.6-10.0) 08/26/24 05:22 RBC 3.91 X10^6/uL (3.5-5.4) 08/26/24 05:22 Hgb 11.3 g/dL (12.0-16.0) L 08/26/24 05:22 Hct 34.0 % (36.0-47.0) L 08/26/24 05:22 MCV 87.0 fL (80.0-100.0) 08/26/24 05:22 MCH 28.8 pg (27.0-34.0) 08/26/24 05:22 MCHC 33.1 g/dL (33.0-35.0) 08/26/24 05:22 RDW 19.2 % (11.6-16.5) H 08/26/24 05:22 Plt Count 475 X10^3/uL (150.0-450.0) H 08/26/24 05:22 MPV 9.5 fL (7.4-11.0) 08/26/24 05:22 Neut % (Auto) 77.3 % (42.0-75.0) H 08/26/24 05:22 Lymph % (Auto) 12.8 % (21.0-51.0) L 08/26/24 05:22 [place] % (Auto) 7.7 % (0.0-13.0) 08/26/24 05:22 Eos % (Auto) 1.5 % (0.9-2.9) 08/26/24 05:22 Baso % (Auto) 0.7 % (0.2-1.0) 08/26/24 05:22 Neut # (Auto) 6.1 x10^3/uL (2.2-4.8) H 08/26/24 05:22 Lymph # (Auto) 1.0 X10^3/uL (1.3-2.9) L 08/26/24 05:22 [place] # (Auto) 0.6 x10^3/uL (0.3-0.8) 08/26/24 05:22 Eos # (Auto) 0.1 x10^3/uL (0.0-0.2) 08/26/24 05:22 Baso # (Auto) 0.1 X10^3/uL (0.0-0.1) 08/26/24 05:22 Absolute Nucleated RBC 0.2 /100WBC 08/26/24 05:22 Sodium 141 mmol/L (136-145) 08/26/24 05:22 Corrected Sodium TNP 08/26/24 05:22 Potassium 3.7 mmol/L (3.5-5.1) 08/26/24 05:22 Chloride 103 mmol/L (98-107) 08/26/24 05:22 Carbon Dioxide 32.5 mmol/L (21-32) H 08/26/24 05:22 BUN 15 mg/dL (7-18) 08/26/24 05:22 Creatinine 0.68 mg/dL (0.55-1.02) 08/26/24 05:22 Est GFR (MDRD) Af Amer > 60 (>60) 08/26/24 05:22 Est GFR (MDRD) Non-Af > 60 (>60) 08/26/24 05:22 Glucose 100 mg/dL (65-99) H 08/26/24 05:22 Calcium 8.6 mg/dL (8.5-10.1) 08/26/24 05:22 Corrected Calcium 10.4 mg/dL (8.5-10.1) H 08/26/24 05:22 Total Bilirubin 0.60 mg/dL (0.2-1.0) 08/26/24 05:22 AST 12 Units/L (15-37) L 08/26/24 05:22 ALT 9 Units/L (12-78) L 08/26/24 05:22 Alkaline Phosphatase 117 Units/L (46-116) H 08/26/24 05:22 Total Protein 5.4 g/dL (6.4-8.2) L 08/26/24 05:22 Albumin 1.8 g/dL (3.4-5.0) L 08/26/24 05:22 Globulin 3.6 g/dL (2.5-4.5) 08/26/24 05:22 Albumin/Globulin Ratio 0.5 Ratio (1.1-2.1) L 08/26/24 05:22 Review of Systems Constitutional: Weakness Eyes: No Symptoms Reported ENT: No Symptoms Reported Respiratory: No Symptoms Reported Cardiovascular: No Symptoms Reported Gastrointestinal: No Symptoms Reported Genitourinary: No Symptoms Reported Musculoskeletal: Leg Pain Skin: No Symptoms Reported Neurological: No Symptoms Reported Physical Exam Vital Signs: Vital Signs Temperature 97.5 F Temperature 98.0 F Pulse Rate [Right Brachial] 90 Pulse Rate [Right Brachial] 80 Respiratory Rate 18 Respiratory Rate 20 Respiratory Rate 18 Respiratory Rate 18 Blood Pressure [Right Arm] 149/67 Blood Pressure [Right Arm] 148/55 O2 Sat by Pulse Oximetry 96 O2 Sat by Pulse Oximetry 94 Oriented: Normal Respiratory: Diminished Throughout Cardiovascular: Normal Auscultation: Bowel Sounds: Normal Palpation: Normal Tenderness: Normal and Other (PEG tube noted) Skin: Decreased [place] Musculoskeletal: Leg, Back:Lumbar and Back:Paraspinous Psychiatric: Anxiety Mood Description: Calm Affect: Normal Speech Pattern: Clear and Appropriate Assessment/Plan (1) Chronic pain: Qualifiers: Chronic pain type: due to neoplasm Qualified Code(s): G89.3 - Neoplasm related pain (acute) (chronic) Status: Chronic (2) History of head and neck cancer: Status: Acute (3) Dysphagia: Qualifiers: Dysphagia type: unspecified Qualified Code(s): R13.10 - Dysphagia, unspecified Status: Chronic (4) COPD (chronic obstructive pulmonary disease): Qualifiers: COPD type: unspecified COPD Qualified Code(s): J44.9 - Chronic obstructive pulmonary disease, unspecified Status: Chronic (5) Diabetes mellitus with neuropathy: Qualifiers: Diabetes mellitus type: type 2 Diabetes mellitus chcf insulin use: without long term care phlebotomist use Qualified Code(s): E11.40 - Type 2 diabetes mellitus with diabetic neuropathy, unspecified Status: Chronic (6) HTN (hypertension): Qualifiers: Hypertension type: primary hypertension Qualified Code(s): I10 - Essential (primary) hypertension Status: Chronic (7) Sciatica: Status: Acute Review H&P Reviewed: Yes Patient was examined?: Yes
[2024-08-26] MEDS: COREG TAB 12.5 MG PO SCH (11:20)
[2024-08-26] MEDS: D5 1/2 NS 1,000 ML 1,000 ML IV SCH (17:13)
[2024-08-26] MEDS: APRESOLINE INJ 20 MG VIAL IVP SCH (17:14)
[2024-08-26] MEDS: MORPHINE SULFATE INJ 2 MG INJ ONE ×2 (19:22→19:27)
[2024-08-26] MEDS: ZOFRAN INJ 4 MG VIAL ONE (19:27)
[2024-08-27] MEDS ORDERED: NovoLIN R (or HumuLIN R) SUBCUT PRN (01:20)
[2024-08-27 05:45] LABS: MEAN PLATELET VOLUME 9.0 fL (7.4-11.0); RED CELL DISTRIBUTION WIDTH 18.7 % (11.6-16.5)
[2024-08-27 05:54] LABS: COR CA(FOR HYPOALB) 10.4 mg/dL (8.5-10.1); COR NA(FOR HYPERGLY) 142 mmol/L (136-145); CREATININE 0.66 mg/dL (0.55-1.02); eGFR NON BLACK RACES > 60 (>60)
[2024-08-27] MEDS ORDERED: CONSULT PHARMACY - POTASSIUM & MAGNESIUM XX SCH (07:00)
[2024-08-27] MEDS ORDERED: VALIUM PO PRN (08:08)
[2024-08-27] MEDS ORDERED: PHARMACY CONSULT XX SCH (09:00)
[2024-08-27] MEDS: K-RIDER 10 MEQ/100 ML WATER 10 MEQ/100 ML BAG IV SCH (09:44)
[2024-08-27] MEDS: CHRONULAC PO SCH (09:45)
[2024-08-27 13:24] VITALS: BMI 36.8
[2024-08-27] MEDS ORDERED: SNACK - Diabetic Appropriate PO SCH (20:00)
[2024-08-27] MEDS: COLACE CAP 100 MG PO SCH (20:50)
[2024-08-28 05:56] LABS: MEAN PLATELET VOLUME 8.5 fL (7.4-11.0); RED CELL DISTRIBUTION WIDTH 18.9 % (11.6-16.5)
[2024-08-28 06:04] LABS: COR CA(FOR HYPOALB) 10.5 mg/dL (8.5-10.1); COR NA(FOR HYPERGLY) 138 mmol/L (136-145); CREATININE 0.66 mg/dL (0.55-1.02); eGFR NON BLACK RACES > 60 (>60)
[2024-08-28 08:30] VITALS: RESP 20
[2024-08-28] MEDS: LORTAB ELIX 7.5/325 MG (15 ML) PO PRN (08:58)
[2024-08-28 16:08] VITALS: BP 141/67; PULSE 73; TEMP 98.5; O2SAT 97
== END 2024-08-28 16:05 | disposition home or self-care (01) ==
LOC: ER 10:44 → MED/SURG 10:44
PROVIDERS: ADMIT Internal Medicine; ATTEND Obstetrics & Gynecology Obstetrics
DX: M79.604 Pain in right leg; R26.89 Other abnormalities of gait and mobility; Z93.1 Gastrostomy status; M54.32 Sciatica, left side; J44.9 Chronic obstructive pulmonary disease, unspecified; E11.65 Type 2 diabetes mellitus with hyperglycemia; F41.8 Other specified anxiety disorders; Z85.89 Personal history of malignant neoplasm of other organs and systems; R91.8 Other nonspecific abnormal finding of lung field; C14.0 Malignant neoplasm of pharynx, unspecified; G89.3 Neoplasm related pain (acute) (chronic); R06.02 Shortness of breath; Z66 Do not resuscitate; R94.31 Abnormal electrocardiogram [ECG] [EKG]; E11.40 Type 2 diabetes mellitus with diabetic neuropathy, unspecified; R13.11 Dysphagia, oral phase; I10 Essential (primary) hypertension